=== PATIENT | female | born 1960 | race Caucasian/White ===

== ENCOUNTER 2023-07-24 09:21 | Outpatient (AMB) | payer OTHER, SELFPAY ==
--- NOTE | 2023-07-24 09:24 | A.OFFPC_ITS ---
Vital Signs 3 07/24/23 09:31 Height 5 ft 3 in Weight 175 lb 6 oz BMI 31.1 BP 124/86 Blood Pressure Location Rt brachial Position Sitting Pulse 69 Pulse Source Pulse Oximeter Pulse Oximetry (%) 98 Oxygen Delivery Method Room Air Intake Visit Reasons: discuss colonoscope Allergies No Known Allergies Allergy (Verified 07/24/23 09:24) Medication List - Last Reconciled 07/24/23 by Rocco Saunders MD No Known Home Meds Tobacco use date assessed: 07/24/23 Dental Screening Dental Screen Date: 07/24/23 Did you have a dental visit in the last 12 months?: Yes Did you have a dental problem in the last 6 months where you did not have access to dental care?: No Was dental information given to patient?: Patient has dentist HPI discuss colonoscope 2 HPI0 Details 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 Tay Jenkins Patient states that she can only go to [facility] so referral was created for [facility]. Patient also states that she fell 2 months ago on her left knee while walking the dog and it is now still painful when she walk on it. On examination patient is tender medially below the patella. I have ordered x- ray for the patient and physical therapy order is placed. Patient also have a seasonal asthma and her asthma is acting up she is requesting script for the inhaler. She has appointment in October for physical examination she will return then. BMI is elevated is at 31.1 [facility] 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 Son No problems noted. Son No problems noted. Daughter No problems noted. Social History Housing: House Alcohol intake: current Alcohol intake frequency: holidays/special occasions only Patient Tobacco Use Status: Former Tobacco user Years Smoked: 5 yrs e-Cigarette/Vaping Use: Never Used Second Hand Smoke Exposure: No service: No Current occupational status: employed Cognitive needs: No Hearing needs: No Vision needs: No Questionnaire PHQ-9 Over the last 2 weeks, how often have you been bothered by any of the following problems? 1. Little interest or pleasure in doing things: several days 2. Feeling down, depressed, or hopeless: several days 3. Trouble falling or staying asleep, or sleeping too much: several days 4. Feeling tired or having little energy: several days 5. Poor appetite or overeating: nearly every day 6. Feeling bad about yourself - or that you are a failure or have let yourself or your family down: nearly every day 7. Trouble concentrating on things, such as reading the newspaper or watching television: more than half the days 8. Moving or speaking so slowly that other people could have noticed. Or the opposite - being so fidgety or restless that you have been moving around a lot more than usual: not at all 9. Thoughts that you would be better off or of hurting yourself in some way: not at all Total score: 12 Depression Screening Interpretation: Positive [id number] - PHQ-9 Billing: Yes Source: Developed by Drs. Dallin Francis, Rani Pepe, Sigifredo Callejas and colleagues, with an educational nicolle from [employer]. Thrive Questionnaire Date Thrive assessed: 07/24/23 I am a: Patient What is your living situation today?: I have a steady place to live Within the past 12 months, did the food you bought not last and you didn't have the money to get more?: Never true Within the past 12 months, did you worry whether your food would run out before you got money to buy more?: Never true Do you have trouble paying for medicines?: No Do you have trouble getting transportation to medical appointments?: No Do you have trouble paying your heating and electricity bill?: No Do you have trouble taking care of your child, family member or friend?: No Do you have trouble with day-to-day activities such as bathing, preparing meals, shopping, managing finances, etc.?: No Are you currently unemployed and looking for a job?: No Are you interested in more education?: No Currently or been in a relationship where the following occur: no concerns reported AUDIT C Alcohol Use Questionnaire (AUDIT-C) 1. How often do you have a drink containing alcohol?: Never 3. How often do you have six or more drinks on one occasion?: Never Total Score: 0 Score Reviewed/Action Taken: Yes MARICARMEN-7 AMB Questionnaire MARICARMEN-7 Date MARICARMEN - 7 assessed: 07/24/23 Feeling nervous, anxious, or on edge: 2 = More than half the days Not being able to stop or control worryin = Nearly every day Worrying too much about different things: 3 = Nearly every day Trouble relaxin = Nearly every day Being so restless that it is hard to sit still: 1 = Several days Becoming easily annoyed or irritable: 0 = Not at all Feeling afraid as if something awful might happen: 3 = Nearly every day Total MARICARMEN-7 score (0-4 normal; 5-9 mild; 10-14 moderate; 15-21 severe): 15 Source: Developed by Drs. Dallin Francis, Rani Pepe, Sigifredo Callejas and colleagues, with an educational nicolle from [employer]. MARICARMEN-7 Assessment Billing MARICARMEN-7 Assessment Tool: MARICARMEN-7 Assessment 36476 Review of Systems Const Denies chills and Denies fever(s) ENT Denies epistaxis and Denies nasal discharge Card Denies chest pain Resp Denies chest congestion, Denies cough and Denies hemoptysis GI Denies diarrhea and Denies nausea Skin/Breast Denies rash Neuro Reports no additional complaints Psych Reports no additional complaints Endo Reports no additional complaints Physical exam (Primary Care) Vital Signs: Last Vital Signs Pulse 69 07/24/23 09:31 BP 124/86 07/24/23 09:31 Pulse Ox 98 07/24/23 09:31 Oxygen Delivery Method Room Air 07/24/23 09:31 BMI result Body Mass Index 31.1 Tobacco/Smoking Status: Tobacco use Status Tobacco use date assessed 07/24/23 07/24/23 09:24 Patient Tobacco Use Status Former Tobacco user 07/24/23 09:24 e-Cigarette/Vaping Use Never Used 07/24/23 09:24 PHQ-9: PHQ-9 Score PHQ-9: Total score 12 07/24/23 11:26 Depression Screening Interpretation: Positive Thrive Assessment: Date of Thrive Assessment Date Thrive assessed 07/24/23 07/24/23 09:47 Currently or been in a relationship where the following occur: no concerns reported Const General: cooperative, comfortable and no acute distress Orientation/consciousness: patient oriented x3 HENMT Head: Yes normocephalic Eyes General: appearance normal, both eyes and all related structures Neck Neck: Yes supple Resp Effort & Inspection: normal respiratory effort, no cough and no stridor Cardio Rhythm: regular rhythm Heart sounds: S1 normal heart sound present and S2 normal heart sound present Skin General skin exam: turgor normal Neuro General: patient oriented x3, tone normal and moves all extremities Extrem Elbow/forearm/wrist images: 2 1. tender to pressure , ROM intact Right lower extremity: no edema Left lower extremity: no edema Assessment and Plan Assessment & Plan (1) Knee injury: Code(s): S89.90XA - Unspecified injury of unspecified lower leg, initial encounter Qualifiers: Encounter type: initial encounter Laterality: left Qualified Code(s): S89.92XA - Unspecified injury of left lower leg, initial encounter (2) Knee pain, left: Code(s): M25.562 - Pain in left knee Qualifiers: Chronicity: acute Qualified Code(s): M25.562 - Pain in left knee (3) Fall: Code(s): W19.XXXA - Unspecified fall, initial encounter Qualifiers: Encounter type: initial encounter Qualified Code(s): W19.XXXA - Unspecified fall, initial encounter (4) Colon cancer screening: Code(s): Z12.11 - Encounter for screening for malignant neoplasm of colon (5) Asthma, mild: Code(s): J45.909 - Unspecified asthma, uncomplicated Qualifiers: Asthma complication type: uncomplicated Asthma persistence: i ntermittent Qualified Code(s): J45.20 - Mild intermittent asthma, uncomplicated (6) Major depression, recurrent: Code(s): F33.9 - Major depressive disorder, recurrent, unspecified Qualifiers: Active/Remission status: in partial remission Qualified Code(s): F33.41 - Major depressive disorder, recurrent, in partial remission Plan 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 Tay Cosco Patient states that she can only go to [facility] so referral was created for [facility]. Patient also states that she fell 2 months ago on her left knee while walking the dog and it is now still painful when she walk on it. On examination patient is tender medially below the patella. I have ordered x- ray for the patient and physical therapy order is placed. Patient also have a seasonal asthma and her asthma is acting up she is requesting script for the inhaler. She has appointment in October for physical examination she will return then. Major depression : she continue to have depression, but dont want to take medication her dep screening is + BMI is elevated is at 31.1 Orders: Orders 2 PT Evaluation and Treatment Today M25.562 - Pain in left knee, S89.90XA - Unspecified injury of unspecified lower leg, initial encounter XR knee LT 2V Today M25.562 - Pain in left knee, S89.90XA - Unspecified injury of unspecified lower leg, initial encounter, W19.XXXA - Unspecified fall, initial encounter Referrals 2 Gastroenterology Referral Z12.11 - Encounter for screening for malignant neoplasm of colon Coding Level of Care Code Est Pt Level 4 (92409) Diagnoses Injury of left knee, initial encounter S89.92XA Encounter type: initial encounter Laterality: left Acute pain of left knee M25.562 Chronicity: acute Fall, initial encounter W19.XXXA Encounter type: initial encounter Colon cancer screening Z12.11 Mild intermittent asthma without complication J45.20 Asthma complication type: uncomplicated Asthma persistence: intermittent Recurrent major depressive disorder, in partial remission F33.41 Active/Remission status: in partial remission Additional Codes MARICARMEN-7 Assessment Billing - MARICARMEN-7 Assessment Tool: MARICARMEN-7 Assessment [id number] ([id number])
[2023-07-24 09:31] VITALS: BP 124/86; PULSE 69; O2SAT 98; BMI 31.1
== END 2023-07-24 11:44 | disposition home or self-care (01) ==
PROVIDERS: PCP Internal Medicine; Visit Provider Internal Medicine
DX: M25.562 Pain in left knee (principal); W19.XXXA Unspecified fall, initial encounter; J45.20 Mild intermittent asthma, uncomplicated; F33.41 Major depressive disorder, recurrent, in partial remission
CPT/HCPCS: 99214

== ENCOUNTER 2023-11-19 07:41 | Outpatient (AMB) | payer OTHER, SELFPAY ==
--- NOTE | 2023-11-19 09:52 | A.OFFPC_ITS ---
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 She has no bleeding per rectum or weight loss [facility] 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 Son No problems noted. Son No problems noted. Daughter No problems noted. Social History Housing: House Alcohol intake: current Alcohol intake frequency: holidays/special occasions only Patient Tobacco Use Status: Former Tobacco user Years Smoked: 5 yrs e-Cigarette/Vaping Use: Never Used Second Hand Smoke Exposure: No service: No Current occupational status: employed Cognitive needs: No Hearing needs: No Vision needs: No Questionnaire Thrive Questionnaire Date Thrive assessed: 07/24/23 AUDIT C Alcohol Use Questionnaire (AUDIT-C) 1. How often do you have a drink containing alcohol?: Never 3. How often do you have six or more drinks on one occasion?: Never Total Score: 0 Score Reviewed/Action Taken: Yes MARICARMEN-7 AMB Questionnaire MARICARMEN-7 Date MARICARMEN - 7 assessed: 07/24/23 Source: Developed by Drs. Dallin Francis, Rani Pepe, Sigifredo Callejas and colleagues, with an educational nicolle from [employer]. Review of Systems Const Denies chills and Denies fever(s) ENT Denies epistaxis and Denies nasal discharge Card Denies chest pain Resp Denies chest congestion, Denies cough and Denies hemoptysis GI Denies diarrhea and Denies nausea Skin/Breast Denies rash Neuro Reports no additional complaints Psych Reports no additional complaints Endo Reports no additional complaints Physical exam (Primary Care) Tobacco/Smoking Status: Tobacco use Status Tobacco use date assessed 11/19/23 11/19/23 09:53 Patient Tobacco Use Status Former Tobacco user 11/19/23 09:53 e-Cigarette/Vaping Use Never Used 11/19/23 09:53 Thrive Assessment: Date of Thrive Assessment Date Thrive assessed 07/24/23 11/19/23 09:53 Telehealth Telehealth Location of provider rendering services: practice address Location of patient: address on file Patient Identification confirmed using: Name, : Yes Telehealth method: video Patient verbally consented to treatment: Yes Patient verbally consented to billing insurance company: Yes Patient informed of any privacy concerns related to visit: Yes Minutes spent on Phone/Video with Pt.: 12 Assessment and Plan Assessment & Plan (1) Schulz syndrome: Code(s): Z15.09 - Genetic susceptibility to other malignant neoplasm Plan Patient is 63-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 She has no bleeding per rectum or weight loss Coding Level of Care Code Tele Est Pt Level 3 (50141) Diagnoses Schulz syndrome Z15.09
== END 2023-11-19 11:54 | disposition home or self-care (01) ==
LOC: HO.HMGC 07:41
PROVIDERS: PCP Internal Medicine; Visit Provider Internal Medicine
DX: Z15.09 Genetic susceptibility to other malignant neoplasm (principal)
CPT/HCPCS: 99213

== ENCOUNTER 2023-11-24 10:23 | Outpatient (AMB) | payer OTHER, SELFPAY ==
[2023-11-24 10:23] VITALS: BP 126/82; PULSE 81; O2SAT 98; BMI 30.7
--- NOTE | 2023-11-24 10:23 | A.OFFPC_ITS ---
Vital Signs 3 11/24/23 10:23 Height 5 ft 3 in Weight 173 lb 6 oz BMI 30.7 BP 126/82 Blood Pressure Location Rt brachial Position Sitting Pulse 81 Pulse Source Pulse Oximeter Pulse Oximetry (%) 98 Oxygen Delivery Method Room Air Intake Visit Reasons: Annual PE Allergies No Known Allergies Allergy (Verified 11/24/23 10:24) Medication List - Last Reconciled 11/24/23 by Rocco Saunders MD albuterol sulfate 90 mcg/actuation (ProAir HFA) 1 inh inhalation QID PRN 30 days Tobacco use date assessed: 11/24/23 Dental Screening Dental Screen Date: 11/24/23 Did you have a dental visit in the last 12 months?: Yes Did you have a dental problem in the last 6 months where you did not have access to dental care?: No Was dental information given to patient?: Patient has dentist HPI Annual PE 2 HPI0 Details Patient is 63-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 BMI is elevated need to lose weight She is also in need of labs I have ordered labs and printed ordered handed to patient so she can have it done in [facility] 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 Son No problems noted. Son No problems noted. Daughter No problems noted. Social History Housing: House Alcohol intake: current Alcohol intake frequency: holidays/special occasions only Patient Tobacco Use Status: Former Tobacco user Years Smoked: 5 yrs e-Cigarette/Vaping Use: Never Used Second Hand Smoke Exposure: No service: No Current occupational status: employed Cognitive needs: No Hearing needs: No Vision needs: No Questionnaire PHQ-9 Over the last 2 weeks, how often have you been bothered by any of the following problems? 1. Little interest or pleasure in doing things: more than half the days 2. Feeling down, depressed, or hopeless: more than half the days 3. Trouble falling or staying asleep, or sleeping too much: nearly every day 4. Feeling tired or having little energy: nearly every day 5. Poor appetite or overeating: nearly every day 6. Feeling bad about yourself - or that you are a failure or have let yourself or your family down: nearly every day 7. Trouble concentrating on things, such as reading the newspaper or watching television: not at all 8. Moving or speaking so slowly that other people could have noticed. Or the opposite - being so fidgety or restless that you have been moving around a lot more than usual: not at all 9. Thoughts that you would be better off or of hurting yourself in some way: not at all Total score: 16 Depression Screening Interpretation: Positive Depression Screening Follow-up: Existing condition and Declines treatment Depression Screening Done: Yes 01157 - PHQ-9 Billing: Yes Source: Developed by Drs. Dallin Francis, Rani Pepe, Sigifredo Callejas and colleagues, with an educational nicolle from [employer]. Thrive Questionnaire Date Thrive assessed: 11/24/23 I am a: Patient What is your living situation today?: I have a steady place to live Within the past 12 months, did the food you bought not last and you didn't have the money to get more?: Never true Within the past 12 months, did you worry whether your food would run out before you got money to buy more?: Never true Do you have trouble paying for medicines?: No Do you have trouble getting transportation to medical appointments?: No Do you have trouble paying your heating and electricity bill?: No Do you have trouble taking care of your child, family member or friend?: No Do you have trouble with day-to-day activities such as bathing, preparing meals, shopping, managing finances, etc.?: Yes Are you currently unemployed and looking for a job?: No Are you interested in more education?: No Please select the resources that you would like help with: None Currently or been in a relationship where the following occur: no concerns reported THRIVE Score: 0 AUDIT C Alcohol Use Questionnaire (AUDIT-C) 1. How often do you have a drink containing alcohol?: Never 3. How often do you have six or more drinks on one occasion?: Never Total Score: 0 Score Reviewed/Action Taken: Yes MARICARMEN-7 AMB Questionnaire MARICARMEN-7 Date MARICARMEN - 7 assessed: 11/24/23 Feeling nervous, anxious, or on edge: 3 = Nearly every day Not being able to stop or control worryin = Nearly every day Worrying too much about different things: 3 = Nearly every day Trouble relaxin = Nearly every day Being so restless that it is hard to sit still: 2 = More than half the days Becoming easily annoyed or irritable: 0 = Not at all Feeling afraid as if something awful might happen: 3 = Nearly every day Total MARICARMEN-7 score (0-4 normal; 5-9 mild; 10-14 moderate; 15-21 severe): 17 Source: Developed by Drs. Dallin Francis, Rani Pepe, Sigifredo Callejas and colleagues, with an educational nicolle from [employer]. MARICARMEN-7 Assessment Billing MARICARMEN-7 Assessment Tool: MARICARMEN-7 Assessment 17440 Review of Systems Const Denies chills, Denies fever(s) and Denies headache(s) Eyes Denies blurry vision ENT Denies headache(s), Denies nasal discharge, Denies nasal obstruction, Denies odynophagia and Denies sinus pain Card Denies chest pain at rest and Denies chest pain with activity Resp Denies cough and Denies hemoptysis GI Denies diarrhea, Denies odynophagia, Denies vomiting and Denies hematemesis Reports as per HPI Musc Denies abnormal gait Skin/Breast Reports as per HPI Neuro Denies Neuro-related abnormal movements, Denies Abnormal speech present, Denies abnormal gait, Denies headache(s) and Denies Sensory deficit (Neuro) Psych Denies mood swings and Denies paranoia Endo Reports as per HPI Lionel/Lymph Reports as per HPI Aller/Immun Reports as per HPI Physical exam (Primary Care) Vital Signs: Last Vital Signs Pulse 81 11/24/23 10:23 BP 126/82 11/24/23 10:23 Pulse Ox 98 11/24/23 10:23 Oxygen Delivery Method Room Air 11/24/23 10:23 BMI result Body Mass Index 30.7 Tobacco/Smoking Status: Tobacco use Status Tobacco use date assessed 11/24/23 11/24/23 10:26 Patient Tobacco Use Status Former Tobacco user 11/24/23 10:26 e-Cigarette/Vaping Use Never Used 11/24/23 10:26 PHQ-9: PHQ-9 Score PHQ-9: Total score 16 11/24/23 11:02 Depression Screening Interpretation: Positive Depression Screening Follow-up: Existing condition and Declines treatment Thrive Assessment: Date of Thrive Assessment Date Thrive assessed 11/24/23 11/24/23 11:02 Currently or been in a relationship where the following occur: no concerns reported Const General: cooperative, comfortable and no acute distress Orientation/consciousness: patient oriented x3 HENMT Head: Yes normocephalic and Yes atraumatic Eyes General: appearance normal, both eyes and all related structures Pupils: Equal, round and reactive pupils present EOM: EOMs intact bilaterally Neck Neck: Yes supple and No lymphadenopathy Thyroid: Thyroid normal Lymphatic: no lymphadenopathy noted Chest Breast/axilla palpation: normal palpation of the breasts Resp Effort & Inspection: normal respiratory effort and able to speak in complete sentences Auscultation: clear to auscultation bilaterally Cardio Heart sounds: S1 normal heart sound present and S2 normal heart sound present GI Palpation (GI): Soft to palpation and nontender Auscultation: normal bowel sounds General: Yes no CVA tenderness Back/Spine/Pelvis Back: no CVA tenderness Skin General skin exam: elasticity normal and turgor normal Neuro General: patient oriented x3 and gait normal Cranial nerves: Yes Equal, round and reactive pupils present Speech: No Abnormal speech present Sensory Exam: No Sensory deficit (Neuro) Coordination: tandem gait normal and Romberg test negative Extrem General: Yes normal exam except as noted and No edema Hand/finger images: 2 1. Tenderness with slight swelling Knee images: 2 1. Tender to pressure Assessment and Plan Assessment & Plan (1) Encounter for general adult medical examination with abnormal findings: Code(s): Z00.01 - Encounter for general adult medical examination with abnormal findings (2) Asthma, mild: Code(s): J45.909 - Unspecified asthma, uncomplicated Qualifiers: Asthma complication type: uncomplicated Asthma persistence: i ntermittent Qualified Code(s): J45.20 - Mild intermittent asthma, uncomplicated (3) Chronic GERD: Code(s): K21.9 - Gastro-esophageal reflux disease without esophagitis (4) Schulz syndrome: Code(s): Z15.09 - Genetic susceptibility to other malignant neoplasm (5) Major depression, recurrent: Code(s): F33.9 - Major depressive disorder, recurrent, unspecified Qualifiers: Active/Remission status: in full remission Qualified Code(s): F33.42 - Major depressive disorder, recurrent, in full remission (6) Anxiety, generalized: Code(s): F41.1 - Generalized anxiety disorder (7) Menopause: Code(s): Z78.0 - Asymptomatic menopausal state (8) Knee pain, left: Code(s): M25.562 - Pain in left knee Qualifiers: Chronicity: acute Qualified Code(s): M25.562 - Pain in left knee (9) Finger pain, right: Code(s): M79.644 - Pain in right finger(s) Plan Patient is 63-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 BMI is elevated need to lose weight She is also in need of labs I have ordered labs and printed ordered handed to patient so she can have it done in [facility] Orders: Orders 2 Complete Blood Count Auto Diff Today F33.9 - Major depressive disorder, recurrent, unspecified, F41.1 - Generalized anxiety disorder, J45.909 - Unspecified asthma, uncomplicated, K21.9 - Gastro-esophageal reflux disease without esophagitis, Z00.01 - Encounter for general adult medical examination with abnormal findings, Z15.09 - Genetic susceptibility to other malignant neoplasm Lipid Panel Today F33.9 - Major depressive disorder, recurrent, unspecified, F41.1 - Generalized anxiety disorder, J45.909 - Unspecified asthma, uncomplicated, K21.9 - Gastro-esophageal reflux disease without esophagitis, Z00.01 - Encounter for general adult medical examination with abnormal findings, Z15.09 - Genetic susceptibility to other malignant neoplasm MM tomosynthesis screening BI Today Z12.31 - Encounter for screening mammogram for malignant neoplasm of breast Comprehensive [facility]. Panel Fast Today F33.9 - Major depressive disorder, recurrent, unspecified, F41.1 - Generalized anxiety disorder, J45.909 - Unspecified asthma, uncomplicated, K21.9 - Gastro-esophageal reflux disease without esophagitis, Z00.01 - Encounter for general adult medical examination with abnormal findings, Z15.09 - Genetic susceptibility to other malignant neoplasm TSH reflex Free T4 Today F33.9 - Major depressive disorder, recurrent, unspecified, F41.1 - Generalized anxiety disorder, J45.909 - Unspecified asthma, uncomplicated, K21.9 - Gastro-esophageal reflux disease without esophagitis, Z00.01 - Encounter for general adult medical examination with abnormal findings, Z15.09 - Genetic susceptibility to other malignant neoplasm XR DEXA axial skeleton Today Z78.0 - Asymptomatic menopausal state Referrals 2 Hand Surgery Referral M79.644 - Pain in right finger(s) [employer] Referral Z01.419 - Encounter for gynecological examination (general) (routine) without abnormal findings Orthopedics Referral M25.562 - Pain in left knee Coding Level of Care Code Est Pt Prev Care 40-64y(06051) Diagnoses Encounter for general adult medical examination with abnormal findings Z00.01 Mild intermittent asthma without complication J45.20 Asthma complication type: uncomplicated Asthma persistence: intermittent Chronic GERD K21.9 Schulz syndrome Z15.09 Recurrent major depressive disorder, in full remission F33.42 Active/Remission status: in full remission Anxiety, generalized F41.1 Menopause Z78.0 Acute pain of left knee M25.562 Chronicity: acute Finger pain, right M79.644 Additional Codes MARICARMEN-7 Assessment Billing - MARICARMEN-7 Assessment Tool: MARCIARMEN-7 Assessment 15820 ([id number])
== END 2023-11-24 10:53 | disposition home or self-care (01) ==
PROVIDERS: PCP Internal Medicine; Visit Provider Internal Medicine
DX: Z00.00 Encounter for general adult medical examination without abnormal findings (principal); F33.42 Major depressive disorder, recurrent, in full remission; J45.20 Mild intermittent asthma, uncomplicated; K21.9 Gastro-esophageal reflux disease without esophagitis; Z15.09 Genetic susceptibility to other malignant neoplasm; F41.1 Generalized anxiety disorder; Z78.0 Asymptomatic menopausal state; M25.562 Pain in left knee; M79.644 Pain in right finger(s)
CPT/HCPCS: 99396

== ENCOUNTER 2024-09-14 08:30 | Outpatient (AMB) | payer OTHER, SELFPAY ==
[2024-09-14 08:36] VITALS: BP 128/76; PULSE 70; O2SAT 98; BMI 31.5
--- NOTE | 2024-09-14 08:36 | MHC.PC.OV ---
Vital Signs 09/14/24 08:36 Height 5 ft 3 in Weight 178 lb BMI 31.5 BP 128/76 Blood Pressure Location Lt brachial Position Sitting Pulse 70 Pulse Source Pulse Oximeter Pulse Oximetry (%) 98 Oxygen Delivery Method Room Air Intake Visit Reasons: Ear wax removal Allergies No Known Allergies Allergy (Verified 09/14/24 08:37) Medication List - Last Reconciled 09/14/24 by Rocco Saunders MD albuterol sulfate 90 mcg/actuation (ProAir HFA) 1 inh inhalation QID PRN 30 days alendronate 70 mg PO QWEEK Tobacco use date assessed: 09/14/24 Dental Screening Dental Screen Date: 09/14/24 Did you have a dental visit in the last 12 months?: Yes Did you have a dental problem in the last 6 months where you did not have access to dental care?: No Was dental information given to patient?: Patient has dentist HPI Ear wax removal HPI Details The patient is a 64-year-old female presenting with cerumen impaction. She reports difficulty hearing, which prompted visits to urgent care. Two weeks ago, she experienced symptoms consistent with streptococcal pharyngitis. After six days of persistent symptoms, she sought medical attention and received a prescription for Amoxicillin. Following this, she developed candidiasis. During her urgent care visit, the physician noted significant cerumen buildup. The patient has not utilized any ear drops for cerumenolysis. Currently, she denies any associated symptoms, such as ear pain or fever. Her primary objective for today's visit is ear wax removal to improve her hearing. [facility] 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 Son No problems noted. Son No problems noted. Daughter No problems noted. Social History Housing: House Alcohol intake: current Alcohol intake frequency: holidays/special occasions only Patient Tobacco Use Status: Former Tobacco user Years Smoked: 5 yrs e-Cigarette/Vaping Use: Never Used Second Hand Smoke Exposure: No service: No Current occupational status: employed Cognitive needs: No Hearing needs: No Vision needs: No Questionnaire Thrive Questionnaire Date Thrive assessed: 11/24/23 AUDIT C Alcohol Use Questionnaire (AUDIT-C) 1. How often do you have a drink containing alcohol?: Never 3. How often do you have six or more drinks on one occasion?: Never Total Score: 0 Score Reviewed/Action Taken: Yes MARICARMEN-7 AMB Questionnaire MARICARMEN-7 Date MARICARMEN - 7 assessed: 11/24/23 Source: Developed by Drs. Dallin Francis, Rani Pepe, Sigifredo Callejas and colleagues, with an educational nicolle from [employer]. Review of Systems Const All systems reviewed & are unremarkable except as noted in HPI and below Physical exam (Primary Care) Vital Signs: Last Vital Signs Pulse 70 09/14/24 08:36 BP 128/76 09/14/24 08:36 Pulse Ox 98 09/14/24 08:36 Oxygen Delivery Method Room Air 09/14/24 08:36 BMI result Body Mass Index 31.5 Tobacco/Smoking Status: Tobacco use Status Tobacco use date assessed 09/14/24 09/14/24 08:37 Patient Tobacco Use Status Former Tobacco user 09/14/24 08:37 e-Cigarette/Vaping Use Never Used 09/14/24 08:37 Thrive Assessment: Date of Thrive Assessment Date Thrive assessed 11/24/23 09/14/24 08:37 Const General: no acute distress Orientation/consciousness: patient oriented x3 HENMT Other: Both ears absent light reflex secondary to impacted wax deep inside the ears before flushing. Eyes General: appearance normal, both eyes and all related structures Resp Effort & Inspection: normal respiratory effort and able to speak in complete sentences Neuro General: patient oriented x3 Psych Mental Status: mental status grossly normal Office Procedures Cerumen Removal From which ear canal was the cerumen removed: bilateral Removal: irrigation Notes: patient tolerated procedure well, no complications and ear canal clear [id number] Irrigation/Lavage Coding Level of Care Code Est Pt Level 3 (01487) Diagnoses Impacted cerumen, bilateral H61.23 CPT Codes Office Procedure - CPT: 90730-Hsg Irrigation/Lavage ([id number]) Assessment & Plan Assessment & Plan (1) Impacted cerumen, bilateral: Code(s): H61.23 - Impacted cerumen, bilateral Category: Medical Plan The patient is a 64-year-old female presenting with cerumen impaction. She reports difficulty hearing, which prompted visits to urgent care. Two weeks ago, she experienced symptoms consistent with streptococcal pharyngitis. After six days of persistent symptoms, she sought medical attention and received a prescription for Amoxicillin. Following this, she developed candidiasis. During her urgent care visit, the physician noted significant cerumen buildup. The patient has not utilized any ear drops for cerumenolysis. Currently, she denies any associated symptoms, such as ear pain or fever. Her primary objective for today's visit is ear wax removal to improve her hearing.
== END 2024-09-14 08:57 | disposition home or self-care (01) ==
PROVIDERS: PCP Internal Medicine; Visit Provider Internal Medicine
DX: H61.23 Impacted cerumen, bilateral (principal)

== ENCOUNTER → 2024-09-14 08:30 | Outpatient (BNVA) | payer OTHER, SELFPAY | PROVIDERS: PCP Internal Medicine; Visit Provider Internal Medicine | DX: H61.23 Impacted cerumen, bilateral (principal) | CPT/HCPCS: 69209 ==

== ENCOUNTER 2024-11-25 07:49 | Outpatient (AMB) | payer OTHER, SELFPAY ==
--- OUTSIDE RECORDS SUMMARY | 2024-11-25 07:52 | XMS_ITS | Clinical Summary ---
Author Organization [employer] Address [address] [place] [address] [address] [place] [address] Care Team Providers Care Apron Man Name Role Phone Unavailable Primary Care Provider Unavailabl e Allergies No known active allergies Medications [id number] THasone 0.1 % ointmentIndications:Angul ar blepharoconjunctivitis of left eye Apply to left eyelid twice a day. 3.5 g 023 Active Additional Information Patient not taking.Reported on 08/16/2024 Active Problems Problem Noted Date Diagnosed Date Schulz syndrome 05/24/2019 Family History Medical History Relation Name Comments Glaucoma Father Relation Name Status Comments Father Social History Tobacco Use Types Packs/Day Years Used Date Smoking Tobacco: Former Cigarettes Tobacco Cessation:Counseling Given: Not Answered Comments:Quit 30 years ago. Only smoked for a few years. A pack would last 2 weeks. Comments Unknown Sex and Gender Information Value Date Recorded Sex Assigned at Female 08/27/2022 4:18 PM EDT Legal Sex Female 8:40 PM EDT Gender Identity Female 05/28/2023 8:33 AM EDT Sexual Orientation Choose not to disclose 2022 8:33 AM EDT Last Filed Vital Signs Vital Sign Reading Time Taken Comments Blood Pressure 102/80 06/03/2023 12:15 PM EDT Pulse - - Temperature 36.2 ??C (97.2 ??F) 06/03/2023 12:15 PM E DT Respiratory Rate - - Oxygen Saturation - - Inhaled Oxygen Concentration - - Weight - - Height - - Body Mass Index - - Plan of Treatment Health Maintenance Due Date Last Done Comments CT Colonography 1962 Colonoscopy 1962 Colorectal Cancer Screening 1962 Depression Screening 1962 FIT DNA/Cologuard 1962 FIT 1962 FOBT 1962 HIV Screening 1962 SDOH Screening 1962 Sigmoidoscopy 1962 Alcohol/Substance Use Screening 1974 Hepatitis C Screening 1980 Pap Smear 1983 Cervical Cancer Screening 1992 HPV/Cotest 1992 Mammogram 2002 Pneumococcal Vaccine: 50+ Years (1 of 1 - PCV) 2012 Zoster Vaccines (1 of 2) 2012 COVID-19 Vaccine ( - season) 2024 11/01/2021, 11/28/2020, 10/31/2020 Tobacco Screening 08/16/2025 08/16/2024 DTaP/Tdap/Td Vaccines (3 - Td or Tdap) 02/15/2032 02/14/2022, 05/23/2013 RSV Patients and Patients Aged 60 years or older (1 - 1-dose 75+ series) 2037 Influenza Vaccine Completed 07/28/2024, , 07/23/2022, Additional history exists HIB Vaccines Aged Out No longer eligi ble based on patient's age to complete this topic HPV Vaccines Aged Out No longer eligi ble based on patient's age to complete this topic Hepatitis A Vaccines Aged Out No long er eligible based on patient's age to complete this topic Hepatitis B Vaccines Aged Out No long er eligible based on patient's age to complete this topic IPV Vaccines Aged Out No longer eligi ble based on patient's age to complete this topic Meningococcal Vaccine Aged Out No tej adelso eligible based on patient's age to complete this topic RSV under 20 months Aged Out No longe r eligible based on patient's age to complete this topic Rotavirus Vaccines Aged Out No longer eligible based on patient's age to complete this topic Insurance [facility]
--- OUTSIDE RECORDS SUMMARY | 2024-11-25 07:52 | XMS_ITS | Clinical Summary ---
Author Organization [facility] Address [address] [place] [address] Care Team Providers Care Food Beverage Manager Name Role Phone Rocco Saunders MD Primary Care Provider [phone] Social History Tobacco Use Types Packs/Day Years Used Date Smoking Tobacco: Never Assessed Sex and Gender Information Value Date Recorded Sex Assigned at Not on file Gender Identity Not on file Sexual Orientation Not on file Plan of Treatment Health Maintenance Due Date Last Done Comments DTaP,Tdap,and Td Vaccines (1 - Tdap) 1981 Cervical Cancer Screening: P ap Smear 1983 Zoster Vaccines (1 of 2) 2012 Cholesterol Screening (Lipid Panel) 10/08/2022 Colorectal Cancer Screening: Colonoscopy 10/08/2022 Depression Screening 10/08/2022 HIV Screening 10/08/2022 Hepatitis C Screening 10/08/2022 Social Influencers of Health Screening 10/08/2022 Breast Cancer Screening 11/04/2023 11/04/19 22, 11/01/2020 COVID-19 Vaccine ( - 2023-2 5 season) 2024 Influenza Vaccine (#1) 2024 RSV Immunization Patients 60 + Years Old (1 - 1-dose 75+ series) 2037 HIB Vaccines Aged Out No longer eligi [...] on patient's age to complete this topic MMR Vaccines Aged Out No longer eligi ble based on patient's age to complete this topic Meningococcal ACWY Vaccine Aged Out N o longer eligible based on patient's age to complete this topic Pneumococcal Vaccine: Pediatrics (0 to 5 Years) and At-Risk Patients (6 to 64 Years) Aged Out No longer eligible b ased on patient's age to complete this topic RSV Immunization Patients Under 20 months Aged Out No longer eligible b ased on patient's age to complete this topic Varicella Vaccines Aged Out No longer eligible based on patient's age to complete this topic Procedures Procedure Name Priority Date/Time Associated Diagnosis Comments [facility] S[facility] Routine 11/04/2021 10:34 AM EST Encounter for screening mammogram for malignant neoplasm of breast from Last 3 Months or Most Recently Relevant to Health Maintenance Results * [facility] (11/04/2021 10:34 AM EST) Anatomical Region Laterality Modality Mammography 11/04/2021 7:43 AM EST Narrative 11/04/2021 10:34 AM EST [facility] Diagnostic Imaging Department [address] [place] [address] Patient: ??JACKI DELCID ?/Age/Sex: 1960 - 61 - F Unit#: ??[id number] ? Location/Status: ??SPDIMAM/REG CLI ? Mnemonic/Ordering Site: ??DIGSC/SPMAM Ordering Physician: ??GARO ISRAEL MD [facility] Screening Digital - 11/04/21828 History: Bilateral breast cancer screening. ??Family history of breast cancer affecting 2 maternal aunts in their 60s). Technique: Bilateral digital mammography. Conventional CC and MLO projections with tomosynthesis MLO views and computer aided detection. Comparison: [facility] and outside mammography 10/31/2020 dating back to 06/25/2012. Breast density: Mixture of fatty and fibroglandular elements, category b density. Findings: There is no suspicious group of microcalcification, suspicious mass, architectural distortion or suspicious change in breast density. ??Tissue asymmetries are without concerning interval change. Impression: No mammographic evidence of malignancy. BIRADS category 1; negative study, 3341F 91074, 95881 A negative mammogram in the face of a suspicious abnormality does not exclude the possibility of malignancy nor alter the indications for biopsy. Note: Patient information entered ??into a reminder system with a target due date for the next mammogram; PQRI II 7017F Dictating Physician: ??DARELL RODRIGES MD Electronically Signed by: ??DARELL RODRIGES MD Dic Date/Time: ??11/04/21 1022 Sign date/Time: ??11/04/21 1034 Procedure Note Darell Rodriges MD - 10/15/2022 [facility] Diagnostic Imaging Department [address] [place] [id number] Patient: FARHANAJACKI D.O.B./Age/Sex: 1960 - 61 - F Unit#: [id number] [facility] CLI Mnemonic/Ordering Site: [facility] Ordering Physician: GARO ISRAEL MD [facility] Screening Digital - 11/04/21828 History: Bilateral breast cancer screening. Family history of breastcancer affecting 2 maternal aunts in their 60s). Technique: Bilateral digital mammography. Conventional CC and MLOprojections with tomosynthesis MLO views and computer aided detection. Comparison: [facility] and outside mammography 10/31/2020 datingback to 06/25/2012. Breast density: Mixture of fatty and fibroglandular elements, category b density. Findings: There is no suspicious group of microcalcification, suspicious mass, architectural distortion or suspicious change in breast density. Tissue asymmetries are without concerning interval change. Impression: No mammographic evidence of malignancy. BIRADS category 1; negative study, 3341F 95299, 56707 A negative mammogram in the face of a suspicious abnormality does notexclude the possibility of malignancy nor alter the indications for biopsy. Note: Patient information entered into a reminder system with a targetdue date for the next mammogram; PQRI II 7025F Dictating Physician: DARELL RODRIGES MD Electronically Signed by: DARELL RODRIGES MD Dic Date/Time: 11/04/21 1022 Sign date/Time: 11/04/21 1034 Garo Dugan MD IMG BI PROCEDURE S from Last 3 Months or Most Recently Relevant to Health Maintenance Advance Directives Documents on File Type Date Recorded Patient Internet Application Developer Expl anation Health Care Decision (hx) 04/06/2017 AD SORENSON DIRECTIVE Health Care Decision (hx) 04/06/2017 AD SORENSON DIRECTIVE Health Care Decision (hx) 04/06/2017 AD SORENSON DIRECTIVE Health Care Decision (hx) 04/06/2017 AD SORENSON DIRECTIVE Health Care Decision (hx) 04/06/2017 AD SORENSON DIRECTIVE Health Care Decision (hx) 04/06/2017 AD SORENSON DIRECTIVE Health Care Decision (hx) 04/06/2017 AD SORENSON DIRECTIVE Health Care Decision (hx) 04/06/2017 AD SORENSON DIRECTIVE Health Care Decision (hx) 04/06/2017 AD SORENSON DIRECTIVE Health Care Decision (hx) 04/06/2017 AD SORENSON DIRECTIVE Health Care Decision (hx) 04/06/2017 AD SORENSON DIRECTIVE Health Care Decision (hx) 04/06/2017 AD SORENSON DIRECTIVE Health Care Decision (hx) 04/06/2017 AD SORENSON DIRECTIVE Health Care Decision (hx) 08/25/2016 AD SORENSON DIRECTIVE Health Care Decision (hx) 08/25/2016 AD SORENSON DIRECTIVE Health Care Decision (hx) 08/25/2016 AD SORENSON DIRECTIVE Health Care Decision (hx) 08/25/2016 AD SORENSON DIRECTIVE Health Care Decision (hx) 08/25/2016 AD SORENSON DIRECTIVE Health Care Decision (hx) 08/25/2016 AD SORENSON DIRECTIVE Health Care Decision (hx) 08/25/2016 AD SORENSON DIRECTIVE Health Care Decision (hx) 08/25/2016 AD SORENSON DIRECTIVE Health Care Decision (hx) 08/25/2016 AD SORENSON DIRECTIVE Health Care Decision (hx) 08/25/2016 AD SORENSON DIRECTIVE Health Care Decision (hx) 08/25/2016 AD SORENSON DIRECTIVE Health Care Decision (hx) 08/25/2016 AD SORENSON DIRECTIVE Health Care Decision (hx) 08/25/2016 AD SORENSON DIRECTIVE Care Teams Food Beverage Manager Relationship Specialty Start Date End Date Rocco Saunders MD [address] [place] [address] PCP - General Internal Medicine 03/31/18
--- OUTSIDE RECORDS SUMMARY | 2024-11-25 07:52 | XMS_ITS | Clinical Summary ---
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 Family History Medical History Relation Name Comments Cancer Maternal Aunt 1 Tayla Cancer Maternal Aunt 2 Marita Relation Name Status Comments Maternal Aunt 1 Tayla Maternal Aunt 2 Marita Alive Social History Tobacco Use Types Packs/Day Years Used Date Smoking Tobacco: Former Cigarettes 0.3 14 Smokeless Tobacco: Never Alcohol Use Standard Drinks/Week Comments Yes 0 (1 standard drink = 0.6 oz pur e alcohol) occasionally Sex and Gender Information Value Date Recorded Sex Assigned at Not on file Gender Identity Not on file Sexual Orientation Not on file Last Filed Vital Signs Vital Sign Reading Time Taken Comments Blood Pressure 124/78 03/31/2018 3:05 PM EDT Pulse 75 03/31/2018 3:05 PM EDT Temperature 36.5 ??C (97.7 ??F) 03/31/2018 3:05 PM ED T Respiratory Rate - - Oxygen Saturation - - Inhaled Oxygen Concentration - - Weight 71.6 kg (157 lb 12.8 oz) 03/31/2018 3:05 PM EDT Height - - Body Mass Index - - Plan of Treatment Health Maintenance Due Date Last Done Comments Hepatitis C Screening 1960 COVID-19 Vaccine (#1) 02[birth year]06/1961 Depression Screening 1974 Preventative Health Evaluation 1980 DTap / Tdap / Td (1 - Tdap) 1981 Cervical Cancer Screening (P ap Smear) 1983 Colon Cancer Screening (Colonoscopy) 2007 Breast Cancer Screening (Mammogram) 2012 Shingrix-Zoster Vaccine (1 of 2) 2012 Influenza Vaccine (#1) 2024 RSV Adult > 60+ Yrs or Pregn ant (1 - 1-dose 75+ series) 2037 Hepatitis B Vaccines Aged Out No long er eligible based on patient's age to complete this topic Pneumococcal Vaccine Aged Out No long er eligible based on patient's age to complete this topic RSV Ped < 20 months Aged Out No longe r eligible based on patient's age to complete this topic Care Teams Outside Upholsterer Relationship Specialty Start Date End Date Rocco Saunders MD [address] [place] [id number] PCP - General Internal Medicine 03/31/18
[2024-11-25 07:54] VITALS: BP 120/70; PULSE 85; RESP 14; TEMP 36.6; O2SAT 96; BMI 30.5
--- NOTE | 2024-11-25 07:54 | A.OFFPC_ITS ---
Vital Signs 11/25/24 07:54 Height 5 ft 3 in Weight 172 lb BMI 30.5 BP 120/70 Blood Pressure Location Rt brachial Position Sitting Respiration 14 Pulse 85 Pulse Source Pulse Oximeter Temp 97.9 F Temp Source Oral Pulse Oximetry (%) 96 Intake Visit Reasons: Annual PE Allergies No Known Allergies Allergy (Verified 11/25/24 07:54) Medication List - Last Reconciled 11/25/24 by Rocco Saunders MD albuterol sulfate 90 mcg/actuation (ProAir HFA) 1 inh inhalation QID PRN 30 days alendronate 70 mg PO QWEEK Tobacco use date assessed: 11/25/24 Dental Screening Dental Screen Date: 11/25/24 Did you have a dental visit in the last 12 months?: No Did you have a dental problem in the last 6 months where you did not have access to dental care?: No Was dental information given to patient?: Patient has dentist HPI Annual PE HPI Details Physical exam appointment - The patient is a 64-year-old female 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 - The patient reports memory challenges affecting daily activities and health management. 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 Health Maintenance - Mammogram received last November with the next one pending. 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 Patient will call her Gastroenterology for that - Engages in physical activity through [employer] twice daily. - Reports concerns with weight gain. 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 - Experiences job-related pressure which may be contributing to memory issues. Diagnostic results - Mammogram: Last performed November of the previous year. - Bone Density Test: Confirmed osteoporo sis one year ago. - Colonoscopy: Last performed two years ago. - Pap smear 2 years ago through OBGYN [facility] Patient Instructions - Call and schedule a mammogram appointm ent for this month. - Follow up with gastroenterology regard ing colonoscopy due to PMS2 gene status. - Contact OBGYN to discuss current healt h needs - Keep a diary to document health-relate d information to assist memory. - Consider lifestyle adjustments for amada ght management and continue regular walking. Review of Systems - Neurological: Reports headaches and me delilah impairment; experiences head shakes. - General: Reports feeling fat and gai aj weight. - Respiratory: Denies smoking. - Ear nose throat: No sore throat no hearing difficulty no ear pain - Cardiovascular: No syncope, no chest pain, no palpitations - Gastrointestinal: No nausea vomiting or diarrhea - Endocrine: No polyuria polydipsia no heat intolerance - Genitourinary: No dysuria - Skin: No new complaints Physical Exam General: Cooperative, healthy appearing, comfortable, no acute distress Orientation: Patient oriented x3 Limitations: None Head: Normal to inspection Ears: Within normal limit visually Nose: Normal external nose present Face and sinus: Normal facial exam Eyes: Appearance normal, extraocular movement intact pupils reactive Neck: Normal visual inspection and supple Respiratory: Normal respiratory effort and able to speak in complete sentences. Clear to auscultation, no stridor Breast exam through OBGYN Cardiovascular: S1 and S2 GI: Normal to inspection. Soft to palpation and nontender Skin: Turgor normal, no acute findings Neuro: Patient oriented x3, motor sensory intact, balance intact, tandem pass Extremities: Normal to inspection [facility] 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 Son No problems noted. Son No problems noted. Daughter No problems noted. Social History Housing: House Alcohol intake: current Alcohol intake frequency: holidays/special occasions only Patient Tobacco Use Status: Former Tobacco user Years Smoked: 5 yrs e-Cigarette/Vaping Use: Never Used Second Hand Smoke Exposure: No service: No Current occupational status: employed Cognitive needs: No Hearing needs: No Vision needs: No Questionnaire Thrive Questionnaire Date Thrive assessed: 11/24/23 I am a: Patient What is your living situation today?: I have a steady place to live Within the past 12 months, did the food you bought not last and you didn't have the money to get more?: I choose not to answer this question Within the past 12 months, did you worry whether your food would run out before you got money to buy more?: I choose not to answer this question Do you have trouble paying for medicines?: I choose not to answer this question Do you have trouble getting transportation to medical appointments?: I choose not to answer this question Do you have trouble paying your heating and electricity bill?: I choose not to answer this question Do you have trouble taking care of your child, family member or friend?: I choose not to answer this question Do you have trouble with day-to-day activities such as bathing, preparing meals, shopping, managing finances, etc.?: I choose not to answer this question Are you currently unemployed and looking for a job?: I choose not to answer this question Are you interested in more education?: I choose not to answer this question Please select the resources that you would like help with: None Currently or been in a relationship where the following occur: I choose not to answer THRIVE Score: 0 AUDIT C Alcohol Use Questionnaire (AUDIT-C) 1. How often do you have a drink containing alcohol?: Monthly or less 2. How many drinks containing alcohol do you have on a typical day when you are drinking?: 1 or 2 3. How often do you have six or more drinks on one occasion?: Never Total Score: 1 MARICARMEN-7 AMB Questionnaire MARICARMEN-7 Date MARICARMEN - 7 assessed: 11/24/23 Feeling nervous, anxious, or on edge: 3 = Nearly every day Not being able to stop or control worryin = Nearly every day Worrying too much about different things: 3 = Nearly every day Trouble relaxin = Several days Being so restless that it is hard to sit still: 0 = Not at all Becoming easily annoyed or irritable: 0 = Not at all Feeling afraid as if something awful might happen: 0 = Not at all Total MARICARMEN-7 score (0-4 normal; 5-9 mild; 10-14 moderate; 15-21 severe): 10 Source: Developed by Drs. Dallin Francis, Rani Pepe, Sigifredo Callejas and colleagues, with an educational nicolle from [employer]. Physical exam (Primary Care) Vital Signs: Last Vital Signs Temp 97.9 F 11/25/24 07:54 Pulse 85 11/25/24 07:54 Resp 14 11/25/24 07:54 BP 120/70 11/25/24 07:54 Pulse Ox 96 11/25/24 07:54 BMI result Body Mass Index 30.5 Tobacco/Smoking Status: Tobacco use Status Tobacco use date assessed 11/25/24 11/25/24 07:59 Patient Tobacco Use Status Former Tobacco user 11/25/24 07:59 e-Cigarette/Vaping Use Never Used 11/25/24 07:59 Thrive Assessment: Date of Thrive Assessment Date Thrive assessed 11/24/23 11/25/24 07:59 Currently or been in a relationship where the following occur: I choose not to answer Coding Level of Care Code Est Pt Level 3 (04870) Est Pt Prev Care 40-64y(11410) Diagnoses Encounter for general adult medical examination with abnormal findings Z00.01 Schulz syndrome Z15.09 Benign head tremor G25.0 Class 1 obesity due to excess calories without serious comorbidity with body mass index (BMI) of 30.0 to 30.9 in adult E66.811; E66.09; Z68.30 Obesity classification: adult class 1 (BMI 30 - 34.9) Serious obesity comorbidity presence: without serious comorbidity Body mass index: BMI 30.0-30.9 Assessment & Plan Assessment & Plan (1) Encounter for general adult medical examination with abnormal findings: Code(s): Z00.01 - Encounter for general adult medical examination with abnormal findings Category: Medical (2) Schulz syndrome: Code(s): Z15.09 - Genetic susceptibility to other malignant neoplasm Category: Medical (3) Benign head tremor: Code(s): G25.0 - Essential tremor Category: Medical (4) Obesity due to excess calories: Code(s): E66.09 - Other obesity due to excess calories Category: Medical Qualifiers: Obesity classification: adult class 1 (BMI 30 - 34.9) Serious obesity comorbidity presence: without serious comorbidity Body mass index: BMI 30.0- 30.9 Qualified Code(s): E66.811 - Obesity, class 1; E66.09 - Other obesity due to excess calories; Z68.30 - Body mass index [BMI] 30.0-30.9, adult Plan Physical exam appointment - The patient is a 64-year-old female with a history of Schulz syndrome, osteoporosis, essential tremor, and memory issues but able to work, obesity chronic GERD intermittent asthma - For osteoporosis, she has been on alendronate for approximately a year or less following a bone density test showed osteoporosis - She experiences an essential tremor primarily of the head and has been advised to start trihexyphenidyl by her neurologist but has not yet initiated treatment. - The patient reports memory challenges affecting daily activities and health management. 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 Health Maintenance - Mammogram received last November with the next one pending. 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 Patient will call her Gastroenterology for that - Engages in physical activity through walking twice daily. - Reports concerns with weight gain. 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 - Experiences job-related pressure which may be contributing to memory issues. Diagnostic results - Mammogram: Last performed November of the previous year. - Bone Density Test: Confirmed osteoporosis one year ago. - Colonoscopy: Last performed two years ago. - Pap smear 2 years ago through OBGYN [facility] Patient Instructions - Call and schedule a mammogram appointment for this month. - Follow up with gastroenterology regarding colonoscopy due to PMS2 gene status. - Contact OBGYN to discuss current health needs - Keep a diary to document health-related information to assist memory. - Consider lifestyle adjustments for weight management and continue regular walking. Orders: Orders Lipid Panel Today E66.09 - Other obesity due to excess calories, G25.0 - Essential tremor, Z00.01 - Encounter for general adult medical examination with abnormal findings, Z15.09 - Genetic susceptibility to other malignant neoplasm Vitamin D 25-OH (D2 and D3) Today E66.09 - Other obesity due to excess calories, G25.0 - Essential tremor, Z00.01 - Encounter for general adult medical examination with abnormal findings, Z15.09 - Genetic susceptibility to other malignant neoplasm TSH reflex Free T4 Today E66.09 - Other obesity due to excess calories, G25.0 - Essential tremor, Z00.01 - Encounter for general adult medical examination with abnormal findings, Z15.09 - Genetic susceptibility to other malignant neoplasm UA CC w/rflx Micro + Cult Today E66.09 - Other obesity due to excess calories, G25.0 - Essential tremor, Z00.01 - Encounter for general adult medical examination with abnormal findings, Z15.09 - Genetic susceptibility to other malignant neoplasm Complete Blood Count Auto Diff Today E66.09 - Other obesity due to excess calories, G25.0 - Essential tremor, Z00.01 - Encounter for general adult medical examination with abnormal findings, Z15.09 - Genetic susceptibility to other malignant neoplasm Comprehensive [place]. Panel Fast Today E66.09 - Other obesity due to excess calories, G25.0 - Essential tremor, Z00.01 - Encounter for general adult medical examination with abnormal findings, Z15.09 - Genetic susceptibility to other malignant neoplasm
== END 2024-11-25 08:25 | disposition home or self-care (01) ==
PROVIDERS: PCP Internal Medicine; Visit Provider Internal Medicine
DX: Z00.00 Encounter for general adult medical examination without abnormal findings (principal); G25.0 Essential tremor; E66.811 Obesity, class 1; Z68.30 Body mass index [BMI] 30.0-30.9, adult; Z15.09 Genetic susceptibility to other malignant neoplasm

== ENCOUNTER 2025-02-14 08:27 | Outpatient (AMB) | payer OTHER, SELFPAY ==
--- NOTE | 2025-02-14 08:37 | A.OFFPC_ITS ---
Vital Signs 02/14/25 08:39 BMI Reason not done Patient refused/unable BP 122/80 Blood Pressure Location Lt brachial Position Sitting Respiration 16 Pulse 82 Pulse Source Pulse Oximeter Temp 98.0 F Temp Source Oral Pulse Oximetry (%) 97 Intake Visit Reasons: right 5th digit. Allergies No Known Allergies Allergy (Verified 02/14/25 08:37) Tobacco use date assessed: 02/14/25 Dental Screening Dental Screen Date: 02/14/25 Did you have a dental visit in the last 12 months?: No Did you have a dental problem in the last 6 months where you did not have access to dental care?: No Was dental information given to patient?: Patient has dentist HPI right 5th digit. HPI Details History - The patient is a 64-year-old female pr esenting with pain in the right fifth digit. - The pain began in November of the prev ious year, possibly related to activities such as walking the dog or carrying heavy bags. - Initial presentation involved a shay g incident, leading to an initial diagnosis of arthritis. - The patient reports persistent pain th at has not improved over time. Slightly better and then flares up - Activities such as drying hands exacer tammy the pain, highlighting the impact on daily functions. - No specific treatments beyond Tylenol have been utilized, with the patient confirming the absence of other analgesics. Problem List - pain of the fifth digit, right hand Patient Instructions - Take Aleve (Naproxen) for pain relief. - Keep the affected finger elevated as m uch as possible. - Schedule an appointment with a hand sp ecialist for further evaluation. Referral placed to [facility] - Monitor for any changes and seek medic al attention if symptoms worsen. Review of Systems - General: No fever no chills - Neurological: No headaches no dizziness - Ear nose throat: No sore throat no hearing difficulty no ear pain - Cardiovascular: No syncope, no chest pain, no palpitations - Gastrointestinal: No nausea vomiting or diarrhea Physical Exam General: No acute distress HEENT: No acute findings Neck: Supple Respiratory system: Able to talk in full sentences, no audible wheeze Gastrointestinal: No pain Extremities: Swollen fifth digit of the right hand distal phalanx, possible soft tissue swelling, range of motion slightly limited secondary to swelling and pain Neurovascular intact SLOTS MANAGER: Alert awake oriented x3 motor sensory intact Skin: Normal turgor [facility] 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 Son No problems noted. Son No problems noted. Daughter No problems noted. Social History Housing: House Alcohol intake: current Alcohol intake frequency: holidays/special occasions only Patient Tobacco Use Status: Former Tobacco user Years Smoked: 5 yrs e-Cigarette/Vaping Use: Never Used Second Hand Smoke Exposure: No service: No Current occupational status: employed Cognitive needs: No Hearing needs: No Vision needs: No Questionnaire Thrive Questionnaire Date Thrive assessed: 11/25/24 I am a: Patient What is your living situation today?: I have a steady place to live Within the past 12 months, did the food you bought not last and you didn't have the money to get more?: I choose not to answer this question Within the past 12 months, did you worry whether your food would run out before you got money to buy more?: I choose not to answer this question Do you have trouble paying for medicines?: I choose not to answer this question Do you have trouble getting transportation to medical appointments?: I choose not to answer this question Do you have trouble paying your heating and electricity bill?: I choose not to answer this question Do you have trouble taking care of your child, family member or friend?: I choose not to answer this question Do you have trouble with day-to-day activities such as bathing, preparing meals, shopping, managing finances, etc.?: I choose not to answer this question Are you currently unemployed and looking for a job?: I choose not to answer this question Are you interested in more education?: I choose not to answer this question Please select the resources that you would like help with: None Currently or been in a relationship where the following occur: I choose not to answer THRIVE Score: 0 MARICARMEN-7 AMB Questionnaire MARICARMEN-7 Date MARICARMEN - 7 assessed: 11/24/23 Source: Developed by Drs. Dlalin Francis, Rani Pepe, Sigifredo Callejas and colleagues, with an educational nicolle from [employer]. Physical exam (Primary Care) Vital Signs: Last Vital Signs Temp 98.0 F 02/14/25 08:39 Pulse 82 02/14/25 08:39 Resp 16 02/14/25 08:39 BP 122/80 02/14/25 08:39 Pulse Ox 97 02/14/25 08:39 Tobacco/Smoking Status: Tobacco use Status Tobacco use date assessed 02/14/25 02/14/25 08:38 Patient Tobacco Use Status Former Tobacco user 02/14/25 08:38 e-Cigarette/Vaping Use Never Used 02/14/25 08:38 Thrive Assessment: Date of Thrive Assessment Date Thrive assessed 11/25/24 02/14/25 08:38 Currently or been in a relationship where the following occur: I choose not to answer Coding Level of Care Code Est Pt Level 3 (68380) Diagnoses Finger pain, right M79.644 Assessment & Plan Assessment & Plan (1) Finger pain, right: Code(s): M79.644 - Pain in right finger(s) Category: Medical Plan History - The patient is a 64-year-old female presenting with pain in the right fifth digit. - The pain began in November of the previous year, possibly related to activities such as walking the dog or carrying heavy bags. - Initial presentation involved a pulling incident, leading to an initial diagnosis of arthritis. - The patient reports persistent pain that has not improved over time. Slightly better and then flares up - Activities such as drying hands exacerbate the pain, highlighting the impact on daily functions. - No specific treatments beyond Tylenol have been utilized, with the patient confirming the absence of other analgesics. Problem List - pain of the fifth digit, right hand Patient Instructions - Take Aleve (Naproxen) for pain relief. - Keep the affected finger elevated as much as possible. - Schedule an appointment with a hand specialist for further evaluation. Referral placed to [facility] - Monitor for any changes and seek medical attention if symptoms worsen. Orders: Referrals Hand Surgery Referral M79.644 - Pain in right finger(s)
[2025-02-14 08:39] VITALS: BP 122/80; PULSE 82; RESP 16; TEMP 36.7; O2SAT 97
--- OUTSIDE RECORDS SUMMARY | 2025-02-14 08:50 | XMS_ITS | Clinical Summary ---
Author Organization [employer] [facility] ity Address [address] [place] [address] Care Team Providers Care Barker Operator Name Role Phone Rocco Saunders MD Primary Care Provider [phone] Social History Tobacco Use Types Packs/Day Years Used Date Smoking Tobacco: Never Assessed Comments Unknown Sex and Gender Information Value Date Recorded Sex Assigned at Not on file Legal Sex Female 8:55 PM EST Gender Identity Not on file Sexual Orientation Not on file Plan of Treatment Health Maintenance Due Date Last Done Comments DTaP,Tdap,and Td Vaccines (1 - Tdap) 1981 Cervical Cancer Screening: P ap Smear 1983 Pneumococcal Vaccine: 50+ Years (1 of 1 - PCV) 2012 Zoster Vaccines (1 of 2) 2012 Breast Cancer Screening 11/04/2023 11/04/19 22, 11/01/2020 COVID-19 Vaccine ( - 2023-2 5 season) 2024 Influenza Vaccine (Season Ended) 2025 RSV Immunization Adult Patients (1 - 1-dose 75+ series) 2037 HIB [...] patient's age to complete this topic Meningococcal B Vaccine Aged Out No l onger eligible based on patient's age to complete [...] Procedure Name Priority Date/Time Associated Diagnosis Comments [facility] SCREENING DIGITAL Routine 11/04/2021 10:34 AM EST Encounter for screening mammogram for malignant neoplasm of breast from Last 3 Months or Most Recently Relevant to Health Maintenance Results * [facility] SCREENING DIGITAL (11/04/2021 10:34 AM EST) Anatomical Region Laterality Modality Mammography 11/04/2021 7:43 AM EST Narrative 11/04/2021 10:34 AM EST [facility] Diagnostic Imaging Department [address] [place] [address] Patient: ??FARHANAJACKI Núñez ?/Age/Sex: 1960 - 61 - F Unit#: ??[id number] ? Location/Status: ??SPDIMAM/REG CLI ? Mnemonic/Ordering Site: ??DIGSC/SPMAM Ordering Physician: ??GARO ISRAEL MD [facility] Screening Digital - 11/04/21828 History: Bilateral breast cancer screening. ??Family history of breast cancer affecting 2 maternal aunts in their 60s). Technique: Bilateral digital mammography. Conventional CC and MLO projections with tomosynthesis MLO views and computer aided detection. Comparison: [facility] and outside mammography 10/31/2020 dating back to 06/25/2012. Breast density: Mixture of fatty and fibroglandular elements, category b density. Findings: There is no suspicious group of microcalcification, suspicious mass, architectural distortion or suspicious change in breast density. ??Tissue asymmetries are without concerning interval change. Impression: No mammographic evidence of malignancy. BIRADS category 1; negative study, 3341F 00218, 01845 A negative mammogram in the face of a suspicious abnormality does not exclude the possibility of malignancy nor alter the indications for biopsy. Note: Patient information entered ??into a reminder system with a target due date for the next mammogram; PQRI II 7089F Dictating Physician: ??DARELL RODRIGES MD Electronically Signed by: ??DARELL RODRIGES MD Dic Date/Time: ??11/04/21 1022 Sign date/Time: ??11/04/21 1034 Procedure Note Darell Rodriges MD - 10/15/2022 [facility] Diagnostic Imaging Department [address] [place] [id number] Patient: FARHANAJACKI D.O.B./Age/Sex: 1960 - 61 - F Unit#: [id number] Location/Status: [facility] SSD/REG CLI Mnemonic/Ordering Site: [facility] Ordering Physician: GARO ISRAEL MD [facility] Screening Digital - 11/04/21 - 828 History: Bilateral breast cancer screening. Family history of breastcancer affecting 2 maternal aunts in their 60s). Technique: Bilateral digital mammography. Conventional CC and MLOprojections with tomosynthesis MLO views and computer aided detection. Comparison: [facility] and outside mammography 10/31/2020 datingback to 06/25/2012. Breast density: Mixture of fatty and fibroglandular elements, category b density. Findings: There is no suspicious group of microcalcification, suspicious mass, architectural distortion or suspicious change in breast density. Tissue asymmetries are without concerning interval change. Impression: No mammographic evidence of malignancy. 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
--- OUTSIDE RECORDS SUMMARY | 2025-02-14 08:50 | XMS_ITS | Encounter Summary ---
Author Organization [employer] [facility] Address [address] [place] [address] [address] [place] [address] Care Team Providers Care Stave Log Ripsaw Operator Name Role Phone Unavailable Primary Care Provider Unavailabl e Reason for Visit * Reason Onset Date Comments possible pink eye 02/09/2025 Encounter Details Date Type Department Care Team (Late st Contact Info) Description 02/09/2025 Telephone Rena Lara [facility] [address] [place] [address] PcpBrandon Unassigned possible pink eye Social History Tobacco Use Types Packs/Day Years Used Date Smoking Tobacco: Former Cigarettes Comments:Quit 30 years ago. Only smoked for a few years. A pack would last 2 weeks. Comments Unknown Sex and Gender Information Value Date Recorded Sex Assigned at Female 08/27/2022 4:18 PM EDT Legal Sex Female 8:40 PM EDT Gender Identity Female 05/28/2023 8:33 AM EDT Sexual Orientation Choose not to disclose 2022 8:33 AM EDT documented as of this encounter Miscellaneous Notes * Telephone Encounter - Liyah Aguilar LPN - 02/09/2025 4:56 PM EDT Spoke with patient advised no eye appointment at [facility] tomorrow. Advised patient to call PCP or seek urgent care. * Telephone Encounter - Laly Hernandez - 02/09/2025 4:13 PM EDT Patient called (again) stating I haven't gotten a call yet, can someone please call me? * Telephone Encounter - Laly Hernandez - 02/09/2025 3:03 PM EDT Patient called stating I think I might have pink eye, it started 2-3 days ago, it's not going awayeven after putting drops in them. Patient states she would like a call back with advice and next steps, thank you. documented in this encounter Plan of Treatment Upcoming Encounters Date Type Department Care Team (Late st Contact Info) Description 08/17/2025 8:30 AM EDT Office Visit Brandon [facility] [address] [place] [address] Ryann Schaeffer, OD [address] [place] [address] documented as of this encounter Visit Diagnoses Not on filedocumented in this encounter
--- OUTSIDE RECORDS SUMMARY | 2025-02-14 08:50 | XMS_ITS | Clinical Summary ---
Author Organization [facility] Address [address] [place] [address] Care Team Providers Care Line Haul Driver Name Role Phone Rocco Saunders MD Primary Care Provider [phone] Allergies No known active allergies Medications No [...] age to complete this topic Care Teams Line Haul Driver Relationship Specialty Start Date End Date Rocco Saunders MD [address] [place] [phone] PCP - General Internal Medicine 03/31/18
--- OUTSIDE RECORDS SUMMARY | 2025-02-14 08:50 | XMS_ITS | Clinical Summary ---
Author Organization [employer] [facility] Address [address] [place] [address] [address] [place] [address] Care Team Providers Care Cement Breaker Name Role Phone Unavailable Primary Care Provider Unavailabl e Allergies No known active allergies Medications [id number] THasone 0.1 % ointmentIndications:Angul ar blepharoconjunctivitis of left eye Apply to left eyelid twice a day. 3.5 g 023 Active Additional Information Patient not taking.Reported on 08/16/2024 Active Problems Problem Noted Date Diagnosed Date Schulz syndrome 05/24/2019 Encounters Date Type Department Care Team Description 02/09/2025 Telephone [place] [facility] [address] [place] [address] Pcp, Brandon Unassigned possible pink eye from Last 3 Months Family History Medical History Relation Name Comments [...] Mass Index - - Plan of Treatment Upcoming Encounters Date Type Department Care Team (Late st Contact Info) Description 08/17/2025 8:30 AM EDT Office Visit Brandon [facility] [address] [place] [address] Ryann Schaeffer, OD [address] [place] [address] Health Maintenance Due Date Last Done Comments [...] (1 of 2) 2012 COVID-19 Vaccine ( season) 2024 11/01/2021, 11/28/2020, 10/31/2020 Tobacco Screening [...] to complete this topic Insurance [employer] [facility] * Guarantor: Alethea Gao Account Type Relation to Patient Date of Phone Billing Address Personal/Family Self [place], [place]
== END 2025-02-14 08:50 | disposition home or self-care (01) ==
LOC: HO.HMCC 08:28
PROVIDERS: PCP Internal Medicine; Visit Provider Internal Medicine
DX: M79.644 Pain in right finger(s) (principal)

== ENCOUNTER → 2025-02-14 08:27 | Outpatient (BNVA) | payer OTHER, SELFPAY | PROVIDERS: PCP Internal Medicine; Visit Provider Internal Medicine ==

== ENCOUNTER 2025-07-18 15:15 | Outpatient (AMB) | payer OTHER, SELFPAY ==
[2025-07-18 15:17] VITALS: BP 124/80; PULSE 78; O2SAT 98; BMI 31.7
--- NOTE | 2025-07-18 15:17 | A.OFFPC_ITS ---
Vital Signs 07/18/25 15:17 Height 5 ft 3 in Weight 179 lb BMI 31.7 BP 124/80 Blood Pressure Location Lt brachial Position Sitting Pulse 78 Pulse Source Pulse Oximeter Pulse Oximetry (%) 98 Intake Visit Reasons: general health Clinical Director Required: No Accompanied by: Self / Same As Patient Allergies No Known Allergies Allergy (Verified 07/18/25 15:17) Medication List - Last Reconciled 07/18/25 by Rocco Saunders MD albuterol sulfate 90 mcg/actuation (ProAir HFA) 1 inh inhalation QID PRN 30 days alendronate 70 mg PO QWEEK Tobacco use date assessed: 02/14/25 Dental Screening Dental Screen Date: 02/14/25 HPI general health HPI Details Patient is 64-year-old female came in today to talk about her weight Patient has been working from home and feels as if she is gaining weight She is walking 4 miles daily Her weight is 179 lb, she got really upset knowing that her weight is 179 today and become tearful She has been feeling depressed because of that I am starting her on phentermine 15 mg tablet She is to repeat her labs order placed printed and handed to patient She will continue to walk and control her diet And will return in 4 weeks for follow-up appointment [facility] 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 Son No problems noted. Son No problems noted. Daughter No problems noted. Social History Housing: House Alcohol intake: current Alcohol intake frequency: holidays/special occasions only Patient Tobacco Use Status: Former Tobacco user Years Smoked: 5 yrs e-Cigarette/Vaping Use: Never Used Second Hand Smoke Exposure: No service: No Current occupational status: employed Cognitive needs: No Hearing needs: No Vision needs: No Questionnaire PHQ-9 Over the last 2 weeks, how often have you been bothered by any of the following problems? 1. Little interest or pleasure in doing things: not at all 2. Feeling down, depressed, or hopeless: not at all 3. Trouble falling or staying asleep, or sleeping too much: nearly every day 4. Feeling tired or having little energy: nearly every day 5. Poor appetite or overeating: nearly every day 6. Feeling bad about yourself - or that you are a failure or have let yourself or your family down: nearly every day 7. Trouble concentrating on things, such as reading the newspaper or watching television: not at all 8. Moving or speaking so slowly that other people could have noticed. Or the opposite - being so fidgety or restless that you have been moving around a lot more than usual: not at all 9. Thoughts that you would be better off or of hurting yourself in some way: not at all Total score: 12 Depression Screening Interpretation: Positive Depression Screening Follow-up: Existing condition and Follow-up Visit Requested Depression Screening Done: Yes 20767 - PHQ-9 Billing: Yes Source: Developed by Drs. Dallin Francis, Rani Pepe, Sigifredo Callejas and colleagues, with an educational nicolle from [employer]. Thrive Questionnaire Date Thrive assessed: 07/18/25 I am a: Patient What is your living situation today?: I have a steady place to live Within the past 12 months, did the food you bought not last and you didn't have the money to get more?: I choose not to answer this question Within the past 12 months, did you worry whether your food would run out before you got money to buy more?: I choose not to answer this question Do you have trouble paying for medicines?: I choose not to answer this question Do you have trouble getting transportation to medical appointments?: I choose not to answer this question Do you have trouble paying your heating and electricity bill?: I choose not to answer this question Do you have trouble taking care of your child, family member or friend?: I choose not to answer this question Do you have trouble with day-to-day activities such as bathing, preparing meals, shopping, managing finances, etc.?: I choose not to answer this question Are you currently unemployed and looking for a job?: I choose not to answer this question Are you interested in more education?: I choose not to answer this question Please select the resources that you would like help with: None Currently or been in a relationship where the following occur: I choose not to a nswer THRIVE Score: 0 AUDIT C Alcohol Use Questionnaire (AUDIT-C) 1. How often do you have a drink containing alcohol?: Monthly or less 2. How many drinks containing alcohol do you have on a typical day when you are drinking?: 1 or 2 3. How often do you have six or more drinks on one occasion?: Never Total Score: 1 Score Reviewed/Action Taken: Yes MARICARMEN-7 AMB Questionnaire MARICARMEN-7 Date MARICARMEN - 7 assessed: 07/18/25 Feeling nervous, anxious, or on edge: 3 = Nearly every day Not being able to stop or control worryin = Nearly every day Worrying too much about different things: 3 = Nearly every day Trouble relaxin = Several days Being so restless that it is hard to sit still: 0 = Not at all Becoming easily annoyed or irritable: 0 = Not at all Feeling afraid as if something awful might happen: 0 = Not at all Total MARICARMEN-7 score (0-4 normal; 5-9 mild; 10-14 moderate; 15-21 severe): 10 Source: Developed by Drs. Dallin Francis, Rani Pepe, Sigifredo Callejas and colleagues, with an educational nciolle from [employer]. MARICARMEN-7 Assessment Billing MARICARMEN-7 Assessment Tool: MARICARMEN-7 Assessment 52530 Review of Systems Const Denies chills and Denies fever(s) ENT Denies epistaxis and Denies nasal discharge Card Denies chest pain Resp Denies chest congestion, Denies cough and Denies hemoptysis GI Denies diarrhea and Denies nausea Skin/Breast Denies rash Neuro Reports no additional complaints Psych Reports no additional complaints Endo Reports no additional complaints Physical exam (Primary Care) Vital Signs: Last Vital Signs Pulse 78 07/18/25 15:17 BP 124/80 07/18/25 15:17 Pulse Ox 98 07/18/25 15:17 BMI result Body Mass Index 31.7 Tobacco/Smoking Status: Tobacco use Status Tobacco use date assessed 02/14/25 07/18/25 15:18 Patient Tobacco Use Status Former Tobacco user 07/18/25 15:18 e-Cigarette/Vaping Use Never Used 07/18/25 15:18 PHQ-9: PHQ-9 Score PHQ-9: Total score 12 07/18/25 15:18 Depression Screening Interpretation: Positive Depression Screening Follow-up: Existing condition and Follow-up Visit Requested Thrive Assessment: Date of Thrive Assessment Date Thrive assessed 07/18/25 07/18/25 15:18 Currently or been in a relationship where the following occur: I choose not to answer Const General: cooperative, comfortable and no acute distress Orientation/consciousness: patient oriented x3 HENMT Head: Yes normocephalic Eyes General: appearance normal, both eyes and all related structures Neck Neck: Yes supple Resp Effort & Inspection: normal respiratory effort, no cough and no stridor Cardio Rhythm: regular rhythm Heart sounds: S1 normal heart sound present and S2 normal heart sound present Skin General skin exam: turgor normal Neuro General: patient oriented x3, tone normal and moves all extremities Extrem Right lower extremity: no edema Left lower extremity: no edema Coding Level of Care Code Est Pt Level 4 (52909) Diagnoses Class 1 obesity due to excess calories without serious comorbidity with body mass index (BMI) of 30.0 to 30.9 in adult E66.811; E66.09; Z68.30 Obesity classification: adult class 1 (BMI 30 - 34.9) Serious obesity comorbidity presence: without serious comorbidity Body mass index: BMI 30.0-30.9 Recurrent major depressive disorder, in full remission F33.42 Active/Remission status: in full remission Chronic GERD K21.9 Difficulty sleeping G47.9 Anxiety, generalized F41.1 Hot flashes R23.2 Additional Codes MARICARMEN-7 Assessment Billing - MARICARMEN-7 Assessment Tool: MARICARMEN-7 Assessment 84577 ([id number]) PHQ-9 - 11624 - PHQ-9 Billing: Yes ([id number]) Assessment & Plan Assessment & Plan (1) Obesity due to excess calories: Code(s): E66.09 - Other obesity due to excess calories Category: Medical Qualifiers: Obesity classification: adult class 1 (BMI 30 - 34.9) Serious obesity comorbidity presence: without serious comorbidity Body mass index: BMI 30.0- 30.9 Qualified Code(s): E66.811 - Obesity, class 1; E66.09 - Other obesity due to excess calories; Z68.30 - Body mass index [BMI] 30.0-30.9, adult (2) Major depression, recurrent: Code(s): F33.9 - Major depressive disorder, recurrent, unspecified Category: Medical Qualifiers: Active/Remission status: in full remission Qualified Code(s): F33.42 - Major depressive disorder, recurrent, in full remission (3) Chronic GERD: Code(s): K21.9 - Gastro-esophageal reflux disease without esophagitis Category: Medical (4) Difficulty sleeping: Code(s): G47.9 - Sleep disorder, unspecified Category: Medical (5) Anxiety, generalized: Code(s): F41.1 - Generalized anxiety disorder Category: Medical (6) Hot flashes: Code(s): R23.2 - Flushing Category: Medical Plan Patient is 64-year-old female came in today to talk about her weight Patient has been working from home and feels as if she is gaining weight She is walking 4 miles daily Her weight is 179 lb, she got really upset knowing that her weight is 179 today and become tearful She has been feeling depressed because of that I am starting her on phentermine 15 mg tablet She is to repeat her labs order placed printed and handed to patient She will continue to walk and control her diet Also has been having hot flashes GERD is stable Depression is still going on off and on along with anxiety And will return in 4 weeks for follow-up appointment Orders: Orders Comprehensive Met. Panel Today E66.09 - Other obesity due to excess calories, E66.811 - Obesity, class 1, F33.42 - Major depressive disorder, recurrent, in full remission, F41.1 - Generalized anxiety disorder, G47.9 - Sleep disorder, unspecified, K21.9 - Gastro-esophageal reflux disease without esophagitis, R23.2 - Flushing, Z68.30 - Body mass index [BMI] 30.0-30.9, adult Complete Blood Count Auto Diff Today E66.09 - Other obesity due to excess calories, E66.811 - Obesity, class 1, F33.42 - Major depressive disorder, recurrent, in full remission, F41.1 - Generalized anxiety disorder, G47.9 - Sleep disorder, unspecified, K21.9 - Gastro-esophageal reflux disease without esophagitis, R23.2 - Flushing, Z68.30 - Body mass index [BMI] 30.0-30.9, adult TSH reflex Free T4 Today E66.09 - Other obesity due to excess calories, E66.811 - Obesity, class 1, F33.42 - Major depressive disorder, recurrent, in full remission, F41.1 - Generalized anxiety disorder, G47.9 - Sleep disorder, unspecified, K21.9 - Gastro-esophageal reflux disease without esophagitis, R23.2 - Flushing, Z68.30 - Body mass index [BMI] 30.0-30.9, adult Medications: New cholecalciferol (vitamin D3) 25 mcg PO DAILY 90 caps 1RF 90 days phentermine must administer 2 hours after breakfast 15 mg PO DAILY 30 caps 0RF
--- OUTSIDE RECORDS SUMMARY | 2025-07-18 18:13 | XMS_ITS | Clinical Summary ---
Author Organization [employer] Address [address] [place] [address] [address] [place] [address] Care Team Providers Care Student Development Dean Name Role Phone Unavailable Primary Care Provider Unavailabl e Allergies No known active allergies Medications [id number] THasone 0.1 % ointmentIndications:Angul ar blepharoconjunctivitis of [...] PM EDT Pulse - - Temperature 36.2 C (97.2 F) 06/03/2023 12:15 PM EDT Respiratory Rate - - Oxygen Saturation - - Inhaled Oxygen Concentration - - Weight - - Height - - Body Mass Index - - Plan of Treatment Upcoming Encounters Date Type Department Care Team (Late st Contact Info) Description 08/17/2025 8:30 AM EDT Office Visit [facility] OPTOMETRY [address] [place] [address] Ryann Schaeffer, OD [address] [place] [address] Health Maintenance Due Date Last Done Comments CT Colonography 1962 Colonoscopy 1962 Colorectal Cancer Screening 1962 Depression Screening 1962 FIT DNA/Cologuard 1962 FIT 1962 FOBT 1962 HIV Screening 1962 SDOH Screening 1962 Sigmoidoscopy 1962 Disability Screening 1962 Alcohol/Substance Use Screening 1974 Hepatitis C Screening 1980 Pap Smear 1983 Cervical Cancer Screening 1992 HPV/Cotest 1992 Mammogram 2002 Pneumococcal Vaccine: 50+ Years (1 of 1 - PCV) 2012 Zoster Vaccines (1 of 2) 2012 COVID-19 Vaccine (4 - season) 2025 11/01/2021, 11/28/2020, 10/31/2020 Influenza Vaccine (#1) 2025 , 07/08/2023, 07/23/2022, Additional history exists Tobacco Screening 08/16/2025 08/16/2024 DTaP/Tdap/Td Vaccines (3 - Td or Tdap) 02/15/2032 02/14/2022, 05/23/2013 RSV Patients and Patients Aged 60 years or older (1 - 1-dose 75+ series) 2037 HIB [...] to complete this topic Insurance [facility] POS
--- OUTSIDE RECORDS SUMMARY | 2025-07-18 18:13 | XMS_ITS | Clinical Summary ---
Author Organization [facility] Address [address] [place] [address] Care Team Providers Care Insurance Writer Name Role Phone Rocco Saunders MD Primary Care Provider [phone] Allergies No known active allergies Medications No [...] 75 03/31/2018 3:05 PM EDT Temperature 36.5 C (97.7 F) 03/31/2018 3:05 PM EDT Respiratory Rate - - Oxygen [...] (1 of 2) 2012 Influenza Vaccine (#1) 2025 RSV Adult > 60+ Yrs or Pregn [...] age to complete this topic Care Teams Insurance Writer Relationship Specialty Start Date End Date Rocco Saunders MD [address] [place] [address] PCP - General Internal Medicine 03/31/18
--- OUTSIDE RECORDS SUMMARY | 2025-07-18 18:13 | XMS_ITS | Clinical Summary ---
Author Organization [employer] [facility] Address [address] [place] [address] Care Team Providers Care Literacy Consultant Name Role Phone Rocco Saunders MD Primary Care Provider [phone] Social History Tobacco Use Types Packs/Day Years [...] Breast Cancer Screening 11/04/2023 11/04/19 22, 11/01/2020 Depression Screening 10/26/2024 COVID-19 Vaccine ( - 2023-2 5 season) 2025 Influenza Vaccine (#1) 2025 RSV Immunization Adult Patients (1 - [...] Procedure Name Priority Date/Time Associated Diagnosis Comments [facility] SCREENING DIGITAL Routine 11/04/2021 10:34 AM EST Encounter for screening mammogram for malignant neoplasm of breast from Last 3 Months or Most Recently Relevant to Health Maintenance Results * [facility] SCREENING DIGITAL (11/04/2021 10:34 AM EST) Anatomical Region Laterality Modality Mammography 11/04/2021 7:43 AM EST Narrative 11/04/2021 10:34 AM EST [facility] Diagnostic Imaging Department [address] [place] [address] Patient: JACKI DELCID Wilton MartinB./Age/Sex: 1960 - 61 - F Unit#: [id number] [facility] Ordering Physician: GARO ISRAEL MD [facility] Screening Digital - 11/04/21828 History: Bilateral breast cancer screening. Family history of breast cancer affecting 2 maternal aunts in their 60s). Technique: Bilateral digital mammography. Conventional CC and MLO projections with tomosynthesis MLO views and computer aided detection. Comparison: [facility] and outside mammography 10/31/2020 dating back to 06/25/2012. Breast density: Mixture of fatty and fibroglandular elements, category b density. Findings: There is no suspicious group of microcalcification, suspicious mass, architectural distortion or suspicious change in breast density. Tissue asymmetries are without concerning interval change. Impression: No mammographic evidence of malignancy. BIRADS category 1; negative study, 3341F 19909, 88553 A negative mammogram in the face of a suspicious abnormality does not exclude the possibility of malignancy nor alter the indications for biopsy. Note: Patient information entered into a reminder system with a target due date for the next mammogram; PQRI II 7025F Dictating Physician: DARELL RODRIGES MD Electronically Signed by: DARELL RODRIGES MD Dic Date/Time: 11/04/21 1022 Sign date/Time: 11/04/21 1034 Procedure Note Darell Rodriges MD - 10/15/2022 [facility] Diagnostic Imaging Department [address] [place] [address] Patient: JACKI DELCID A /Age/Sex: 1960 - 61 - F Unit#: [id number] Location/Status: [facility] CLI Mnemonic/Ordering Site: [facility] Ordering Physician: GARO ISRAEL MD [facility] Screening Digital - 11/04/21828 History: Bilateral breast cancer screening. Family history of breastcancer affecting 2 maternal aunts in their 60s). Technique: Bilateral digital mammography. Conventional CC and MLOprojections with tomosynthesis MLO views and computer aided detection. Comparison: [facility] and outside mammography 10/31/2020 datingback to 06/25/2012. Breast density: Mixture of fatty and fibroglandular elements, category b density. Findings: There is no suspicious group of microcalcification, suspicious mass, architectural distortion or suspicious change in breast density. Tissue asymmetries are without concerning interval change. Impression: No mammographic evidence of malignancy. 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
--- OUTSIDE RECORDS SUMMARY | 2025-07-18 18:13 | XMS_ITS | Patient Health Record ---
[facility] Address [address] [place] [address] Care Team Providers Care Route Salesman And Driver Name Role Phone Chip [facility]CRAY, [facility] Primary Care Provider Eden Stewart Unavailable [phone] Reason For Referral No Information Medications Medication SIG (Take, Route, Frequency, Duration) Notes Start Date End Date Status Ciclopirox Olamine 0.77% external Apply to effected areas twice a day; Duration: 30 days 09/12/2015 Unknown Problems No Known Problems Plan Of Treatment No Information Insurance Providers Payer Name Payer Address Payer Phone Subscriber Number Group Number Insured Name Patient Relationship to Insured Coverage Start Date Coverage End Date [facility] [address] [place] [address] [phone] [id number] Alethea Gao Self - patient is the insured
== END 2025-07-18 15:40 | disposition home or self-care (01) ==
LOC: HO.HMCC 15:16
PROVIDERS: PCP Internal Medicine; Visit Provider Internal Medicine
DX: E66.811 Obesity, class 1 (principal); E66.09 Other obesity due to excess calories; Z68.30 Body mass index [BMI] 30.0-30.9, adult; F33.42 Major depressive disorder, recurrent, in full remission; K21.9 Gastro-esophageal reflux disease without esophagitis; G47.9 Sleep disorder, unspecified; F41.1 Generalized anxiety disorder; R23.2 Flushing

== ENCOUNTER → 2025-07-18 15:15 | Outpatient (BNVA) | payer OTHER, SELFPAY | PROVIDERS: PCP Internal Medicine; Visit Provider Internal Medicine | DX: E66.811 Obesity, class 1 (principal); E66.09 Other obesity due to excess calories; K21.9 Gastro-esophageal reflux disease without esophagitis; G47.9 Sleep disorder, unspecified; F41.1 Generalized anxiety disorder; R23.2 Flushing; Z68.30 Body mass index [BMI] 30.0-30.9, adult | CPT/HCPCS: 96127 ==

== ENCOUNTER 2025-08-22 13:12 | Outpatient (AMB) | payer OTHER, SELFPAY ==
[2025-08-22 13:14] VITALS: BP 126/80; PULSE 80; RESP 16; TEMP 36.2; O2SAT 97; BMI 30.7
--- NOTE | 2025-08-22 13:14 | MHC.PC.OV ---
Vital Signs 08/22/25 13:14 Height 5 ft 3 in Weight 173 lb 6 oz BMI 30.7 BP 126/80 Blood Pressure Location Rt brachial Position Sitting Respiration 16 Pulse 80 Pulse Source Pulse Oximeter Temp 97.2 F Temp Source Oral Pulse Oximetry (%) 97 Oxygen Delivery Method Room Air Intake Visit Reasons: 4 weeks f/up Allergies No Known Allergies Allergy (Verified 07/18/25 15:17) Medication List - Last Reconciled 08/22/25 by Rocco Saunders MD albuterol sulfate 90 mcg/actuation (ProAir HFA) 1 inh inhalation QID PRN 30 days alendronate 70 mg PO QWEEK cholecalciferol (vitamin D3) 25 mcg PO DAILY 90 days phentermine 15 mg PO DAILY Tobacco use date assessed: 02/14/25 Dental Screening Dental Screen Date: 02/14/25 HPI 4 weeks f/up HPI Details History of Present Illness The patient is a 65-year-old female presenting for a 4-week follow-up appointment for weight management. Overweight: - The patient is on phentermine 15 mg, which she takes two hours after breakfast. - She reports experiencing significant hunger by 3 or 4 p.m. - She lost 5.5 pounds in the last four weeks, going from 179 lbs on July 18 to 173.6 lbs today. - For exercise, she has been walking about four miles every morning. Grief: - The patient's mother last week, which required her to reschedule her appointment. - She speculates that her recent weight loss may be partly due to decreased appetite associated with her grief and the stress of arranging services. - She reports having to force herself to get out of bed in the morning. Medications: - Phentermine 15 mg for weight management. Social History: - Exercise: The patient reports walking about four miles every morning. - Nutrition: The patient reports eating breakfast around 11:00 a.m., which typically consists of two eggs, and sometimes an apple with peanut butter or avocado toast. - Family Status: The patient's mother last week. Problem List - Obesity - Grief Plan - The dosage of phentermine will be increased to 37.5 mg. - A new prescription will be sent to the patient's pharmacy. - The patient was advised to continue her morning walks and to be mindful of her diet. - A follow-up visit is scheduled for four weeks. Review of Systems - General: No fever no chills - Neurological: No headaches no dizziness - Ear nose throat: No sore throat no hearing difficulty no ear pain - Cardiovascular: No syncope, no chest pain, no palpitations - Gastrointestinal: No nausea vomiting or diarrhea - Endocrine: No polyuria polydipsia no heat intolerance - Genitourinary: No dysuria , no blood in urine Physical Exam - General: No acute distress - HEENT: No acute findings - Neck: Supple - Respiratory system: Able to talk in full sentences, no audible wheeze - Cardiovascular: S1-S2 regular in rate and rhythm - Gastrointestinal: No pain - Extremities: No new findings - BUFFING WHEEL FORMER AUTOMATIC: Alert awake oriented x3 motor intact - Skin: Normal turgor PFSH 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 Son No problems noted. Son No problems noted. Daughter No problems noted. Social History Housing: House Alcohol intake: current Alcohol intake frequency: holidays/special occasions only Patient Tobacco Use Status: Former Tobacco user Years Smoked: 5 yrs e-Cigarette/Vaping Use: Never Used Second Hand Smoke Exposure: No service: No Current occupational status: employed Cognitive needs: No Hearing needs: No Vision needs: No Questionnaire Thrive Questionnaire Date Thrive assessed: 11/25/24 I am a: Patient What is your living situation today?: I have a steady place to live Within the past 12 months, did the food you bought not last and you didn't have the money to get more?: I choose not to answer this question Within the past 12 months, did you worry whether your food would run out before you got money to buy more?: I choose not to answer this question Do you have trouble paying for medicines?: I choose not to answer this question Do you have trouble getting transportation to medical appointments?: I choose not to answer this question Do you have trouble paying your heating and electricity bill?: I choose not to answer this question Do you have trouble taking care of your child, family member or friend?: I choose not to answer this question Do you have trouble with day-to-day activities such as bathing, preparing meals, shopping, managing finances, etc.?: I choose not to answer this question Are you currently unemployed and looking for a job?: I choose not to answer this question Are you interested in more education?: I choose not to answer this question Please select the resources that you would like help with: None Currently or been in a relationship where the following occur: I choose not to answer THRIVE Score: 0 MARICARMEN-7 AMB Questionnaire MARICARMEN-7 Date MARICARMEN - 7 assessed: 07/18/25 Source: Developed by Drs. Dallin Francis, Rani Pepe, Sigifredo Callejas and colleagues, with an educational nicolle from [address] [employer]. Physical exam (Primary Care) Vital Signs: Last Vital Signs Temp 97.2 F 08/22/25 13:14 Pulse 80 08/22/25 13:14 Resp 16 08/22/25 13:14 BP 126/80 08/22/25 13:14 Pulse Ox 97 08/22/25 13:14 Oxygen Delivery Method Room Air 08/22/25 13:14 BMI result Body Mass Index 30.7 Tobacco/Smoking Status: Tobacco use Status Tobacco use date assessed 02/14/25 08/22/25 13:20 Patient Tobacco Use Status Former Tobacco user 08/22/25 13:20 e-Cigarette/Vaping Use Never Used 08/22/25 13:20 Thrive Assessment: Date of Thrive Assessment Date Thrive assessed 11/25/24 08/22/25 13:20 Currently or been in a relationship where the following occur: I choose not to answer Coding Level of Care Code Est Pt Level 3 (51656) Diagnoses Class 1 obesity due to excess calories without serious comorbidity with body mass index (BMI) of 30.0 to 30.9 in adult E66.811; E66.09; Z68.30 Obesity classification: adult class 1 (BMI 30 - 34.9) Serious obesity comorbidity presence: without serious comorbidity Body mass index: BMI 30.0-30.9 Zoila F43.21 Assessment & Plan Assessment & Plan (1) Obesity due to excess calories: Code(s): E66.09 - Other obesity due to excess calories Category: Medical Qualifiers: Obesity classification: adult class 1 (BMI 30 - 34.9) Serious obesity comorbidity presence: without serious comorbidity Body mass index: BMI 30.0-30.9 Qualified Code(s): E66.811 - Obesity, class 1; E66.09 - Other obesity due to excess calories; Z68.30 - Body mass index [BMI] 30.0-30.9, adult (2) Grieving: Code(s): F43.21 - Adjustment disorder with depressed mood Category: Medical Plan Overweight: - The patient is on phentermine 15 mg, which she takes two hours after breakfast. - She reports experiencing significant hunger by 3 or 4 p.m. - She lost 5.5 pounds in the last four weeks, going from 179 lbs on July 18 to 173.6 lbs today. - For exercise, she has been walking about four miles every morning. Grief: - The patient's mother last week, which required her to reschedule her appointment. - She speculates that her recent weight loss may be partly due to decreased appetite associated with her grief and the stress of arranging services. - She reports having to force herself to get out of bed in the morning. Medications: - Phentermine 15 mg for weight management. Social History: - Exercise: The patient reports walking about four miles every morning. - Nutrition: The patient reports eating breakfast around 11:00 a.m., which typically consists of two eggs, and sometimes an apple with peanut butter or avocado toast. - Family Status: The patient's mother last week. Problem List - Obesity - Grief Plan - The dosage of phentermine will be increased to 37.5 mg. - A new prescription will be sent to the patient's pharmacy. - The patient was advised to continue her morning walks and to be mindful of her diet. - A follow-up visit is scheduled for four weeks. Medications: New phentermine must administer 30 minutes before or 1-2 hours after breakfast 37.5 mg PO DAILY 30 caps 0RF
== END 2025-08-22 13:33 | disposition home or self-care (01) ==
LOC: HO.HMCC 13:13
PROVIDERS: PCP Internal Medicine; Visit Provider Internal Medicine
DX: E66.811 Obesity, class 1 (principal); E66.09 Other obesity due to excess calories; Z68.30 Body mass index [BMI] 30.0-30.9, adult; F43.21 Adjustment disorder with depressed mood

== ENCOUNTER 2025-09-19 07:51 | Outpatient (AMB) | payer OTHER, SELFPAY ==
--- OUTSIDE RECORDS SUMMARY | 2025-09-19 07:55 | XMS_ITS | Clinical Summary ---
Author Organization [facility] Address [address] [place] [address] Care Team Providers Care Manager Cosmetic Name Role Phone Rocco Saunders MD Primary Care Provider [phone] Allergies No known active allergies Medications No [...] age to complete this topic Care Teams Manager Cosmetic Relationship Specialty Start Date End Date Rocco Saunders MD [address] [place] [address] PCP - General Internal Medicine 03/31/18
--- OUTSIDE RECORDS SUMMARY | 2025-09-19 07:55 | XMS_ITS | Clinical Summary ---
Author Organization [facility] it[facility] Address [address] [place] [address] Care Team Providers Care Sales And Service Specialist Name Role Phone Rocco Saunders MD Primary Care Provider [phone] Social History Tobacco Use Types Packs/Day Years [...] 22, 11/01/2020 Depression Screening 10/26/2024 COVID-19 Vaccine (1 - 2024-2 6 season) 2025 Influenza Vaccine (#1) 2025 RSV [...] Procedure Name Priority Date/Time Associated Diagnosis Comments [facility] Routine 11/04/2021 10:34 AM EST Encounter for screening mammogram for malignant neoplasm of breast from Last 3 Months or Most Recently Relevant to Health Maintenance Results * [facility] (11/04/2021 10:34 AM EST) Anatomical Region Laterality Modality Mammography 11/04/2021 7:43 AM EST Narrative 11/04/2021 10:34 AM EST [facility] Diagnostic Imaging Department [address] [place] [address] Patient: JACKI DELCID Wilton MartinB./Age/Sex: 1960 - 61 - F Unit#: [id number] [facility]Ordering Site: [facility] Ordering Physician: GARO ISRAEL MD [facility] Digital - 11/04/21828 History: Bilateral breast cancer screening. Family history of breast cancer affecting 2 maternal aunts in their 60s). Technique: Bilateral digital mammography. Conventional CC and MLO projections with tomosynthesis MLO views and computer aided detection. Comparison: [facility] and outside mammography 10/31/2020 dating back to 06/25/2012. Breast density: Mixture of fatty and fibroglandular elements, category b density. Findings: There is no suspicious group of microcalcification, suspicious mass, architectural distortion or suspicious change in breast density. Tissue asymmetries are without concerning interval change. Impression: No mammographic evidence of malignancy. BIRADS category 1; negative study, 3341F [id number], 48597 A negative mammogram in the face of [...] Procedure Note Darell Rodriges MD - 10/15/2022 [facility] Diagnostic Imaging Department [address] [place] [id number] Patient: JACKI DELCID A /Age/Sex: 1960 - 61 - F Unit#: [id number] Location/Status: [facility] CLI Mnemonic/Ordering Site: [facility] Ordering Physician: GARO ISRAEL MD [facility] - 11/04/21828 History: Bilateral breast cancer screening. Family history of breastcancer affecting 2 maternal aunts in their 60s). Technique: Bilateral digital mammography. Conventional CC and MLOprojections with tomosynthesis MLO views and computer aided detection. Comparison: [facility] and outside mammography 10/31/2020 datingback to 06/25/2012. Breast density: Mixture of fatty and fibroglandular elements, category b density. Findings: There is no suspicious group of microcalcification, suspicious mass, architectural distortion or suspicious change in breast density. Tissue asymmetries are without concerning interval change. Impression: No mammographic evidence of malignancy. BIRADS category 1; negative study, 3341F 53288, 72084 A negative mammogram in the face of a suspicious abnormality does notexclude the possibility of malignancy nor alter the indications for biopsy. Note: Patient information entered into a reminder system with a targetdue date for the next mammogram; PQRI II 7025F Dictating Physician: DARELL RODRIGES MD Electronically Signed by: DARELL RODRIGES MD Dic Date/Time: 11/04/21 1022 Sign date/Time: 11/04/21 1034 aGro Dugan MD IMG BI PROCEDURES Final Result from Last 3 Months or Most Recently Relevant to Health Maintenance Advance Directives Documents on File Type Date Recorded Patient Project Planner Expl anation Health Care Decision (hx) 04/06/2017 [...] (hx) 08/25/2016 AD SORENSON DIRECTIVE Care Teams Sales And Service Specialist Relationship Specialty Start Date End Date Rocco Saunders MD [address] [place] [address] PCP - General Internal Medicine 03/31/18
--- OUTSIDE RECORDS SUMMARY | 2025-09-19 07:55 | XMS_ITS | Clinical Summary ---
Author Organization [facility] Address [address] [place] [address] [address] [place] [address] Care Team Providers Care Social Services Manager Name Role Phone Rocco Saunders Primary Care Provider [phone] Allergies No known active allergies Medications zhwuaywr-xyixeepln-wduCEY THasone 0.1 % ointmentIndications:Angul ar blepharoconjunctivitis of left eye Apply to left eyelid twice a day. 3.5 g 023 Active Additional Information Patient not taking.Reported on 08/16/2024 alendronate (Fosamax) 70 MG tablet Take 70 mg by mouth 1 (one) time per week. Active phentermine 37.5 MG capsule TAKE 1 CAPSULE ORALLY DAILY MUST ADMINISTER 30 MINUTES BEFORE OR 1-2 HOURS AFTER BREAKFAST 025 Active cholecalciferol (Vitamin D-3) 25 MCG (1000 UT) capsule Take 1 capsule by mouth Once per day. 025 Active Active Problems Problem Noted Date Diagnosed Date Schulz syndrome 05/24/2019 Encounters Date Type Department Care Team Description 09/07/2025 8:30 AM EST Office Visit [facility] OPTOMETRY [address] [place] [address] Ryann Schaeffer, OD Choroidal nevus of right eye (Primary Dx); Dry eye syndrome of both eyes; Presbyopia of both eyes from Last 3 Months Family History Medical [...] Sign Reading Time Taken Comments Blood Pressure 106/80 09/07/2025 8:24 AM EST Pulse - - Temperature 36.2 C (97.2 [...] 2) 2012 COVID-19 Vaccine ( - season) 2025 11/01/2021, 11/28/2020, 10/31/2020 Tobacco Screening 09/07/2026 09/07/2025 DTaP/Tdap/Td Vaccines (3 - Td or Tdap) 02/15/2032 02/14/2022, 05/23/2013 RSV Patients and Patients Aged 60 years or older (1 - 1-dose 75+ series) 2037 Influenza Vaccine Completed 08/04/2025, , 07/08/2023, Additional history exists HIB Vaccines Aged Out [...] to complete this topic Insurance [employer] Member Subscriber Plan / Payer (Ef fective 2022-Present) Name:Alethea Gao Relation to Subscriber:Self Name:Alethea Gao Payer ID:Not on file Group ID:Not on file Type:Not on file Address: [place] [id number] [facility] Care Teams Social Services Manager Relationship Specialty Start Date End Date Rocco Saunders [address] [place] [address] PCP - General 09/07/25
[2025-09-19 08:03] VITALS: BP 120/80; PULSE 91; O2SAT 98; BMI 30.1
--- NOTE | 2025-09-19 08:03 | A.OFFPC_ITS ---
Vital Signs 09/19/25 08:03 Height 5 ft 3 in Weight 170 lb BMI 30.1 BP 120/80 Blood Pressure Location Lt brachial Position Sitting Pulse 91 Pulse Source Pulse Oximeter Pulse Oximetry (%) 98 Intake Visit Reasons: 4 week follow up Allergies No Known Allergies Allergy (Verified 09/19/25 08:03) Medication List - Last Reconciled 09/19/25 by Rocco Saunders MD albuterol sulfate 90 mcg/actuation (ProAir HFA) 1 inh inhalation QID PRN 30 days alendronate 70 mg PO QWEEK cholecalciferol (vitamin D3) 25 mcg PO DAILY 90 days phentermine 37.5 mg PO DAILY Tobacco use date assessed: 02/14/25 Dental Screening Dental Screen Date: 02/14/25 HPI HPI Comments History of Present Illness Details History of Present Illness The patient is a 65 year old individual presenting for a follow-up visit for weight management. Obesity: - The patient is taking phentermine 37.5 mg for weight management and reports no problems with the medication. - The patient does not weigh at home and requests not to be told the weight during visits. - The patient's diet has been irregular for the past two weeks due to a recent in the family. - The patient engages in daily walking f or exercise. Constipation: - The patient reports that eating cashew s causes constipation. - Daily walking helps with bowel movemen ts. Social History: - Exercise: The patient walks every morn ing. - Nutritional Intake: The patient report s not eating correctly for the past two weeks due to the passing of the patient's mother. - Stressors: The patient recently experi enced the of a parent. Family History: - Mother is recently . COUNTS INCLUDE [facility] BEDS AT THE [facility] 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 Son No problems noted. Son No problems noted. Daughter No problems noted. Social History Housing: House Alcohol intake: current Alcohol intake frequency: holidays/special occasions only Patient Tobacco Use Status: Former Tobacco user Years Smoked: 5 yrs e-Cigarette/Vaping Use: Never Used Second Hand Smoke Exposure: No service: No Current occupational status: employed Cognitive needs: No Hearing needs: No Vision needs: No Questionnaire Thrive Questionnaire Date Thrive assessed: 11/25/24 I am a: Patient What is your living situation today?: I have a steady place to live Within the past 12 months, did the food you bought not last and you didn't have the money to get more?: I choose not to answer this question Within the past 12 months, did you worry whether your food would run out before you got money to buy more?: I choose not to answer this question Do you have trouble paying for medicines?: I choose not to answer this question Do you have trouble getting transportation to medical appointments?: I choose not to answer this question Do you have trouble paying your heating and electricity bill?: I choose not to answer this question Do you have trouble taking care of your child, family member or friend?: I c hoose not to answer this question Do you have trouble with day-to-day activities such as bathing, preparing meals, shopping, managing finances, etc.?: I choose not to answer this question Are you currently unemployed and looking for a job?: I choose not to answer this question Are you interested in more education?: I choose not to answer this question Please select the resources that you would like help with: None Currently or been in a relationship where the following occur: I choose not to answer THRIVE Score: 0 MARICARMEN-7 AMB Questionnaire MARICARMEN-7 Date MARICARMEN - 7 assessed: 07/18/25 Source: Developed by Drs. Dallin Francis, Rani Pepe, Sigifredo Callejas and colleagues, with an educational nicolle from [employer]. Review of Systems Narrative Review of Systems - Constitutional: Denies any problems taking phentermine. - Gastrointestinal: Reports constipation, which is exacerbated by cashews and relieved by walking. - Neurological: No headaches no dizziness - Ear nose throat: No sore throat no hearing difficulty no ear pain - Cardiovascular: No syncope, no chest pain, no palpitations - Endocrine: No polyuria polydipsia no heat intolerance - Genitourinary: No dysuria , no blood in urine Physical exam (Primary Care) Vital Signs: Last Vital Signs Pulse 91 09/19/25 08:03 BP 120/80 09/19/25 08:03 Pulse Ox 98 09/19/25 08:03 BMI result Body Mass Index 30.1 Tobacco/Smoking Status: Tobacco use Status Tobacco use date assessed 02/14/25 09/19/25 08:03 Patient Tobacco Use Status Former Tobacco user 09/19/25 08:03 e-Cigarette/Vaping Use Never Used 09/19/25 08:03 Thrive Assessment: Date of Thrive Assessment Date Thrive assessed 11/25/24 09/19/25 08:03 Currently or been in a relationship where the following occur: I choose not to answer Narrative Physical Exam General: No acute distress HEENT: No acute findings Neck: Supple Respiratory system: Able to talk in full sentences, no audible wheeze Cardiovascular: S1-S2 regular in rate and rhythm Gastrointestinal: Constipation noted, related to cashew consumption Extremities: No new findings FISH CONSERVATIONIST: Alert awake oriented x3 motor intact Skin: Normal turgor Coding Level of Care Code Est Pt Level 3 (65195) Diagnoses Class 1 obesity due to excess calories without serious comorbidity with body mass index (BMI) of 30.0 to 30.9 in adult E66.811; E66.09; Z68.30 Obesity classification: adult class 1 (BMI 30 - 34.9) Serious obesity comorbidity presence: without serious comorbidity Body mass index: BMI 30.0-30.9 Constipation by delayed colonic transit K59.01 Assessment & Plan Assessment & Plan (1) Obesity due to excess calories: Code(s): E66.09 - Other obesity due to excess calories Category: Medical Qualifiers: Obesity classification: adult class 1 (BMI 30 - 34.9) Serious obesity comorbidity presence: without serious comorbidity Body mass index: BMI 30.0- 30.9 Qualified Code(s): E66.811 - Obesity, class 1; E66.09 - Other obesity due to excess calories; Z68.30 - Body mass index [BMI] 30.0-30.9, adult (2) Constipation by delayed colonic transit: Code(s): K59.01 - Slow transit constipation Category: Medical Plan Problem List - Obesity - Constipation Plan - Continue phentermine 37.5 mg. - A refill for phentermine will be sent to the pharmacy. - Advised to improve dietary control. - Follow up in one month. Medications: Refilled phentermine must administer 30 minutes before or 1-2 hours after breakfast 37.5 mg PO DAILY 30 caps 0RF
== END 2025-09-19 08:39 | disposition home or self-care (01) ==
LOC: HO.HMCC 07:52
PROVIDERS: PCP Internal Medicine; Visit Provider Internal Medicine
DX: E66.811 Obesity, class 1 (principal); E66.09 Other obesity due to excess calories; Z68.30 Body mass index [BMI] 30.0-30.9, adult; K59.01 Slow transit constipation

== ENCOUNTER 2025-10-18 08:11 | Outpatient (AMB) | payer OTHER, SELFPAY ==
--- OUTSIDE RECORDS SUMMARY | 2025-10-18 08:15 | XMS_ITS | Patient Health Record ---
Author Organization [facility] Address [address] [place] [address] Care Team Providers Care Calculation Clerk Name Role Phone Chip [facility] Primary [facility] Provider Eden Stewart Unavailable [phone] Reason For Referral No Information Medications Medication [...] Insured Coverage Start Date Coverage End Date [facility] [address] [place] [address] [id number] Alethea Gao Self - patient is the insured
--- OUTSIDE RECORDS SUMMARY | 2025-10-18 08:15 | XMS_ITS | Clinical Summary ---
Author Organization [employer] Address [address] [place] [address] [address] [place] [address] Care Team Providers Care Feed Management Advisor Name Role Phone Rocco Saunders Primary Care Provider [phone] Allergies No known active allergies Medications ackdmgaf-sttlqpcdg-sciDKH THasone 0.1 % ointmentIndications:Angul ar blepharoconjunctivitis of [...] Description 09/07/2025 8:30 AM EST Office Visit [facility] OPTOMETRY [address] [place] [address] Ryann Schaeffer, OD Choroidal nevus of right [...] ID:Not on file Type:Not on file Address: [place] [id number] [facility] Care Teams Feed Management Advisor Relationship Specialty Start Date End Date Rocco Saunders [address] [place] [address] PCP - General 09/07/25
--- OUTSIDE RECORDS SUMMARY | 2025-10-18 08:15 | XMS_ITS | Clinical Summary ---
Author Organization [facility] Prior to 03/25/[address] [place] [address] Care Team Providers Care Gasoline Pump Installer Name Role Phone Rocco Saunders MD Primary Care Provider [phone] Allergies No known active allergies Medications No [...] age to complete this topic Care Teams Gasoline Pump Installer Relationship Specialty Start Date End Date Rocco Saunders MD [address] [place] [address] PCP - General Internal Medicine 03/31/18
[2025-10-18 08:23] VITALS: BP 120/80; PULSE 73; O2SAT 98; BMI 29.2
--- NOTE | 2025-10-18 08:23 | A.OFFPC_ITS ---
Vital Signs 10/18/25 08:23 Height 5 ft 3 in Weight 165 lb BMI 29.2 BP 120/80 Blood Pressure Location Lt brachial Position Sitting Pulse 73 Pulse Source Pulse Oximeter Pulse Oximetry (%) 98 Oxygen Delivery Method Room Air Intake Visit Reasons: 1 mo follow up [employer] Investigator Required: No Accompanied by: Self / Same As Patient Allergies No Known Allergies Allergy (Verified 10/18/25 08:24) Medication List - Last Reconciled 10/18/25 by Rocco Saunders MD albuterol sulfate 90 mcg/actuation (ProAir HFA) 1 inh inhalation QID PRN 30 days alendronate 70 mg PO QWEEK cholecalciferol (vitamin D3) 25 mcg PO DAILY 90 days phentermine 37.5 mg PO DAILY Tobacco use date assessed: 02/14/25 Dental Screening Dental Screen Date: 02/14/25 HPI HPI Comments History of Present Illness Details History of Present Illness The patient is a 65-year-old female presenting for a weight management follow-up visit. Weight Management: - The patient is on phentermine 37.5 mg for weight management and is tolerating the medication well without palpitations. - She has been taking the medication for approximately three months, starting around July. - Her weight has progressively decreased from 179 pounds in June, to 173 in July, 170 in August, and 165 pounds at the current visit. - She lost 5 pounds over the last month. - Her BMI has decreased to 29.2, and she is now classified as overweight rather than obese. - She reports that while she does not fe el the weight loss in her clothes, she feels less like she is choking when she sits down. - She identifies starches as her dietary - downfall and acknowledges eating when experiencing anxiety or feeling upset. - Her exercise consists of walking for [facility] an hour each morning. Osteoporosis: - The patient is taking alendronate and vitamin D for her bones. Hypertension: - Her blood pressure is well controlled, with a recent reading of 120/80 mmHg. Influenza: - The patient was sick with the flu for two weeks prior to the visit, with symptoms of sore throat and coughing. Medical History: - Overweight - Hypertension, well-controlled - Osteoporosis - Recent influenza - History of anxiety-related eating Medications: - Phentermine 37.5 mg for weight managem ent - Alendronate for osteoporosis - Vitamin D for osteoporosis Social History: - Employment: The patient works from [employer]. - Exercise: She walks for half an hour i n the morning, which is about one mile. - Nutrition: She reports that starches a re her dietary weakness and has been eating late recently. - Behavioral Health: She identifies courtney veronica due to anxiety or when she is upset. Diagnostic Results: - Weight trend: 179 lbs (June), 173 lbs (July), 170 lbs (August), 165 lbs (current). - BMI: 29.2 - Blood pressure: 120/80 mmHg [facility] 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 Son No problems noted. Son No problems noted. Daughter No problems noted. Social History Housing: House Alcohol intake: current Alcohol intake frequency: holidays/special occasions only Patient Tobacco Use Status: Former Tobacco user Years Smoked: 5 yrs e-Cigarette/Vaping Use: Never Used Second Hand Smoke Exposure: No service: No Current occupational status: employed Cognitive needs: No Hearing needs: No Vision needs: No Questionnaire Thrive Questionnaire Date Thrive assessed: 11/25/24 I am a: Patient What is your living situation today?: I have a steady place to live Within the past 12 months, did the food you bought not last and you didn't have the money to get more?: I choose not to answer this question Within the past 12 months, did you worry whether your food would run out before you got money to buy more?: I choose not to answer this question Do you have trouble paying for medicines?: I choose not to answer this question Do you have trouble getting transportation to medical appointments?: I choose not to answer this question Do you have trouble paying your heating and electricity bill?: I choose not to answer this question Do you have trouble taking care of your child, family member or friend?: I choose not to answer this question Do you have trouble with day-to-day activities such as bathing, preparing meals, shopping, managing finances, etc.?: I choose not to answer this question Are you currently unemployed and looking for a job?: I choose not to answer this question Are you interested in more education?: I choose not to answer this question Currently or been in a relationship where the following occur: I choose not to answer THRIVE Score: 0 MARICARMEN-7 AMB Questionnaire MARICARMEN-7 Date MARICARMEN - 7 assessed: 07/18/25 Source: Developed by Drs. Dallin Francis, Rani Pepe, Sigifredo Callejas and colleagues, with an educational nicolle from [employer]. Review of Systems Narrative Review of Systems - General: No fever no chills - Neurological: No headaches no dizziness - Ear nose throat: No sore throat no hearing difficulty no ear pain - Cardiovascular: No syncope, no chest pain, no palpitations - Gastrointestinal: No nausea vomiting or diarrhea - Endocrine: No polyuria polydipsia no heat intolerance - Genitourinary: No dysuria , no blood in urine Physical exam (Primary Care) Vital Signs: Last Vital Signs Pulse 73 10/18/25 08:23 BP 120/80 10/18/25 08:23 Pulse Ox 98 10/18/25 08:23 Oxygen Delivery Method Room Air 10/18/25 08:23 BMI result Body Mass Index 29.2 Tobacco/Smoking Status: Tobacco use Status Tobacco use date assessed 02/14/25 10/18/25 08:24 Patient Tobacco Use Status Former Tobacco user 10/18/25 08:24 e-Cigarette/Vaping Use Never Used 10/18/25 08:24 Thrive Assessment: Date of Thrive Assessment Date Thrive assessed 11/25/24 10/18/25 08:24 Currently or been in a relationship where the following occur: I choose not to answer Narrative Physical Exam General: No acute distress HEENT: No acute findings Neck: Supple Respiratory system: Able to talk in full sentences, no audible wheeze Cardiovascular: S1-S2 regular in rate and rhythm, blood pressure well controlled at 120/80 Gastrointestinal: No pain Extremities: No new findings [facility] ATTENDANT: Alert awake oriented x3 motor intact Skin: Normal turgor Coding Level of Care Code Est Pt Level 3 (57546) Diagnoses Overweight (BMI 25.0-29.9) E66.3 Age related osteoporosis, unspecified pathological fracture presence M81.0 Presence of current pathological fracture: unspecified Assessment & Plan Assessment & Plan (1) Overweight (BMI 25.0-29.9): Code(s): E66.3 - Overweight Category: Medical (2) Age related osteoporosis: Code(s): M81.0 - Age-related osteoporosis without current pathological fracture Category: Medical Qualifiers: Presence of current pathological fracture: unspecified Qualified Code(s): M81.0 - Age-related osteoporosis without current pathological fracture Plan Problem List - Overweight - Weight management - Osteoporosis Plan - A refill for phentermine will be sent to the pharmacy. - Continue phentermine 37.5 mg as the patient is tolerating it well and it is effective for weight loss. - Continue taking alendronate and vitamin D for bone health. - The goal is to lose an additional 25 pounds, aiming for a weight of 130 lbs over the next three months by losing about 5 pounds per month. - Dietary counseling was provided, advising the patient to be mindful of holiday eating, stay away from sweets, and limit starches such as bread, rice, and pasta. - The patient was encouraged to eat meat, vegetables, broth, and salad. - Advised to manage anxiety-related eating by engaging in physical activity, such as running on a treadmill, jumping jacks, or push-ups, to release anxiety and anger. - Continue current exercise of walking for 30 minutes daily. - Follow-up scheduled in one month. Medications: Refilled phentermine must administer 30 minutes before or 1-2 hours after breakfast 37.5 mg PO DAILY 30 caps 0RF
== END 2025-10-18 08:39 | disposition home or self-care (01) ==
LOC: HO.HMCC 08:12
PROVIDERS: PCP Internal Medicine; Visit Provider Internal Medicine
DX: E66.3 Overweight (principal); M81.0 Age-related osteoporosis without current pathological fracture